=== PATIENT | male | born 1975 | race African-American/Black ===

== ENCOUNTER 2018-06-12 20:26 | Emergency (ER) | payer OTHER ==
[2018-06-12 21:06] LABS: #Basophils 0.2 thou/uL (0.0-0.2); #Eosinphils 0.2 thou/uL (0.0-0.7); #Monocytes 0.8 thou/uL (0.11-0.59); #Neutrophils 7.8 thou/uL (1.40-6.50); %Basophils 1.3 % (0.0-1.0); %Eosinophils 1.6 % (0.0-10.0); %Lymphocytes 25.1 % (21.0-51.0); Hemoglobin 15.2 g/dL (14.0-18.0); Mean Corpuscular HGB CONC 34.8 g/dL (32.0-36.0); Mean Corpuscular Hemoglobin 29.5 pg (27.0-31.0); Mean Corpuscular Volume 84.8 fL (78.0-98.0); Mean Platelet Volume 6.7 fL (7.4-10.4); Platelet Count 315 thou/uL (130-400); RBC Distribution Width 13.4 % (11.5-14.5); Red Blood Cell (RBC) Count 5.14 mill/uL (4.70-6.10)
--- NOTE | 2018-06-12 21:11 | RAD ---
RADIOGRAPH CHEST 1 VIEW: 06/12/18 HISTORY: 42-year-old male with acute chest pain. FINDINGS: There is no air space density, pulmonary edema, or pneumothorax. The lateral costophrenic angles are sharp. There is a single lead left subclavian AICD. IMPRESSION: 1. No acute pulmonary findings. 2. Automatic implantable cardioverter/defibrillator. jn [][id number] POS: [facility]
[2018-06-12 21:50] LABS: CKMB 4.5 ng/mL (0-6.6)
[2018-06-13 00:28] LABS: Troponin I 0.041 ng/mL (< 0.028)
[2018-06-13 01:29] LABS: ALT (SGPT) 27 U/L (8-55); AST (SGOT) 24 U/L (5-34); Albumin 4.5 g/dL (3.5-5.0); Alkaline Phosphatase 67 U/L (40-150); Anion Gap 15 mmol/L (10-20); BUN (Urea Nitrogen) 55 mg/dL (8.9-20.6); Bilirubin, Total 0.6 mg/dL (0.2-1.2); Calc. Creatinine Clearance 0 mL/min (70-130); Calcium 10.2 mg/dL (7.8-10.44); Carbon Dioxide 24 mmol/L (22-29); Chloride 101 mmol/L (98-107); Estimated GFR-MDRD 39; Glucose 99 mg/dL (70-105); Potassium 3.8 mmol/L (3.5-5.1); Protein, Total 7.5 g/dL (6.0-8.3); Sodium 136 mmol/L (136-145)
--- NOTE | 2018-06-16 10:49 | EKG ---
Test Reason : Blood Pressure : / mmHG Vent. Rate : 087 BPM Atrial Rate : 087 BPM P-R Int : 176 ms QRS Dur : 086 ms QT Int : 400 ms P-R-T Axes : 052 -26 150 degrees QTc Int : 481 ms Normal sinus rhythm Moderate voltage criteria for LVH, may be normal variant Inferior infarct , age undetermined T wave abnormality, consider lateral ischemia Abnormal ECG Confirmed by AMINA PEDRO DO ([id number]), avid editor LORRAINE DESIR ([id number]) on 06/16/2018 10:49:18 AM Referred By: Confirmed By:AMINA PEDRO DO
== END 2018-06-13 00:40 | disposition home or self-care (01) ==
LOC: ERS 20:26
DX: R07.9 Chest pain, unspecified (principal); I25.10 Atherosclerotic heart disease of native coronary artery without angina pectoris; I25.2 Old myocardial infarction; I11.0 Hypertensive heart disease with heart failure; I50.9 Heart failure, unspecified; Z87.891 Personal history of nicotine dependence; Z79.899 Other long term (current) drug therapy; Z79.82 Long term (current) use of aspirin
CPT/HCPCS: 36415; 71045; 80053; 82550; 82553; 84484; 85025; 93005

== ENCOUNTER 2018-11-25 20:05 | Observation (INO) | payer OTHER ==
--- NOTE | 2018-11-25 20:28 | RAD ---
EXAM: Chest one view: HISTORY: Chest pain COMPARISON: 06/12/2018 FINDINGS: Left ICD. Heart size: Enlarged. Lungs: Clear of acute process. No evidence for pneumonia, pleural effusion, acute edema, or pneumothorax, or other significant acute process. IMPRESSION: Cardiomegaly with left ICD. No new process.
[2018-11-25] MEDS ORDERED: Nitroglycerin 2% Ointment 1 INCH/1 GM Packet ONE (20:33)
[2018-11-25 20:58] LABS: #Basophils 0.1 thou/uL (0.0-0.2); #Eosinphils 0.3 thou/uL (0.0-0.7); #Lymphocytes 3.4 thou/uL (1.20-3.40); #Monocytes 0.5 thou/uL (0.11-0.59); #Neutrophils 4.5 thou/uL (1.40-6.50); %Basophils 1.3 % (0.0-1.0); %Eosinophils 3.6 % (0.0-10.0); %Lymphocytes 38.4 % (21.0-51.0); %Neutrophils 50.7 % (42.0-75.0); Hemoglobin 15.5 g/dL (14.0-18.0); Mean Corpuscular HGB CONC 35.2 g/dL (32.0-36.0); Mean Corpuscular Hemoglobin 29.4 pg (27.0-31.0); Mean Corpuscular Volume 83.6 fL (78.0-98.0); Mean Platelet Volume 7.6 fL (7.4-10.4); Platelet Count 218 thou/uL (130-400); RBC Distribution Width 13.1 % (11.5-14.5); Red Blood Cell (RBC) Count 5.29 mill/uL (4.70-6.10); White Blood Cell (WBC) Count 8.8 thou/uL (4.8-10.8)
[2018-11-25 21:21] LABS: ALT (SGPT) 29 U/L (8-55); AST (SGOT) 22 U/L (5-34); Albumin 4.2 g/dL (3.5-5.0); Alkaline Phosphatase 85 U/L (40-150); Anion Gap 15 mmol/L (10-20); BUN (Urea Nitrogen) 23 mg/dL (8.9-20.6); Bilirubin, Total 0.5 mg/dL (0.2-1.2); Calc. Creatinine Clearance 0 mL/min (70-130); Calcium 8.9 mg/dL (7.8-10.44); Carbon Dioxide 19 mmol/L (22-29); Chloride 106 mmol/L (98-107); Estimated GFR-MDRD 52; Globulin 2.9 g/dL (2.4-3.5); Glucose 88 mg/dL (70-105); Lipase 49 U/L (8-78); Potassium 4.1 mmol/L (3.5-5.1); Protein, Total 7.1 g/dL (6.0-8.3); Sodium 136 mmol/L (136-145)
[2018-11-25 21:22] LABS: Bilirubin Negative (Negative); Blood, Urine Negative (Negative); Clarity CLEAR (Clear); Glucose, Urine (Dipstick) Negative (Negative); Leukocyte Small (Negative); Nitrite Negative (Negative); Protein, Urine (Dipstick) Negative (Neg-Trace); Urobilinogen 0.2 mg/dL (0.2-1.0)
[2018-11-25 21:26] LABS: Bacteria/HPF None Seen HPF (None Seen); RBC/HPF 0-3 HPF (0-3); Squamous Epithelial 0-3 HPF (0-3)
[2018-11-25 21:29] LABS: Pathc Cast-AUWi Flag 3.26 (0-2.49)
[2018-11-25 21:38] LABS: Hyaline Casts/LPF 7-10 HYALINE CAST LPF (0-3 Hyaline)
[2018-11-26 00:09] VITALS: BMI 36.4
[2018-11-26 00:10] LABS: Troponin I 0.041 ng/mL (< 0.028)
[2018-11-26] MEDS ORDERED: Ondansetron PF 4 MG/2 ML Vial IVP PRN (01:59)
[2018-11-26] MEDS ORDERED: Acetaminophen 650 MG Suppository PR PRN (01:59)
[2018-11-26] MEDS ORDERED: Ondansetron ODT 4 MG TAB PO PRN (01:59)
[2018-11-26] MEDS ORDERED: Acetaminophen 325 MG TAB PO PRN (01:59)
[2018-11-26 02:37] LABS: Amphetamine Not Detected (NotDetected); Barbiturates Screen Not Detected (NotDetected); Benzodiazepine Screen Not Detected (NotDetected); Cocaine Metabolite Screen Not Detected (NotDetected); Medtox Control Line Valid? VALID (VALID); Medtox Reader # READER 4; Methadone Not Detected (NotDetected); Methamphetamine Not Detected (NotDetected); Opiate Screen Not Detected (NotDetected); Oxycodone Screen Not Detected (NotDetected); Phencyclidine (PCP) Not Detected (NotDetected); THC/Cannabinoid Screen Detected (NotDetected); Tricyclic Screen Not Detected (NotDetected)
[2018-11-26 03:00] LABS: Troponin I 0.036 ng/mL (< 0.028)
--- NOTE | 2018-11-26 03:16 | HP ---
HISTORY OF PRESENT ILLNESS: Mr. Adhikari is a 43-year-old man who presents with complaints of chest pain that started earlier this afternoon at approximately 1: 00 pm. The patient states this happened after he had been straining himself moving furniture around his home. It did not occur until he sat down stressed. He states the pain was approximately 8/10 in severity, which he describes as a soreness in the center of his chest. It was nonradiating. No associated shortness of breath. He took a nitroglycerin and it relieved his discomfort immediately. The pain however recurred within 1 hour and again, he took nitroglycerin. The pain then recurred within 30 minutes and he took a third dose of nitroglycerin. Within another 30 minutes, he had recurrent pain that was more severe and associated with breathlessness. The patient states in the 1-2 hours leading up to this severe pain, he had been arguing with his uncle. He states he felt lightheaded. He reports being given another dose of nitroglycerin in the ambulance that took his pain away completely and has not recurred since. He denies any recent cough or hemoptysis. No fevers, chills, or sweats. No headaches or dizziness. The patient is known to have an extensive cardiac history. He is known to have coronary artery disease and has undergone a cardiac stent placement in the past. He has a history of chronic CHF with noncompliance due to not having insurance. The patient is status post an AICD placement in 2014. The cardiac stent placement was in July of 2014. The last echocardiogram on file was in June 2016, which was a 2D echo showing severe LV dysfunction with an EF of 30% to 35% and moderate to severe global hypokinesis with grade 1 diastolic dysfunction. Trace to mild mitral regurgitation and mild tricuspid regurgitation present. The patient states since then he has sought medical attention at the [facility]. He was last seen approximately 1 month ago for chest pain. He was admitted and underwent investigations including an echocardiogram and possibly stress test. He states he has had recurrent pain since then, prompting a visit to the ER, but due to being given a moldy sandwich, walked out and has decided never to go back there again. He does not follow with a artist representative nor a primary care doctor. PAST MEDICAL HISTORY: 1. Coronary artery disease. 2. CHF. 3. IL, treated with stent. 4. Hypertension. PAST SURGICAL HISTORY: 1. Internal defibrillator. 2. Cardiac stent. PAST SOCIAL HISTORY: The patient reports drinking on social occasions only. Denies any recent alcohol use. Denies any tobacco use and states he smokes marijuana occasionally. Denies any other drug use. Denies any cocaine use. ALLERGIES: NO KNOWN DRUG ALLERGIES. CURRENT MEDICATIONS: 1. Amlodipine. 2. Atorvastatin. 3. Carvedilol. 4. Hydralazine. 5. Aspirin. 6. Furosemide. 7. Lisinopril. 8. Spironolactone. PHYSICAL EXAMINATION: GENERAL: The patient appears well developed, well nourished, and is in no acute distress. VITAL SIGNS: Temperature 97.7, pulse 69, respirations 16, O2 saturation 98% on room air, blood pressure 144/88. HEENT: Normocephalic and atraumatic. Pupils are equal, round, and reactive to light. Sclerae are without icterus. Oropharynx is clear. NECK: Supple without lymphadenopathy. CARDIAC: Regular rate and rhythm. CHEST: Chest wall with mild discomfort to palpation at the incision from previous defibrillator placement on the left chest without any erythema or warmth. Well-healed incision. Lungs clear to auscultation bilaterally. ABDOMEN: Soft, obese, nontender, nondistended. Normoactive bowel sounds present. No guarding or rigidity. No renal angle tenderness. EXTREMITIES: No lower leg swelling or edema. NEUROLOGIC: Alert and oriented x3. SKIN: Without rash or jaundice. LABORATORY DATA: White blood count 9.8, hemoglobin 15.5, hematocrit 44.2, platelets 218. Sodium 136, potassium 4.1, BUN 23, creatinine 1.74, GFR 52, calcium 8.9, total bilirubin 0.5, AST 22, ALT 29, alkaline phosphatase 85. Troponin I 0.023, 0.041. Albumin 4.2. Lipase 49. Urinalysis notable for small leukocyte esterase, 7 to 10 white blood cells and hyaline casts 7-10. IMAGING DATA: Chest x-ray, cardiomegaly with left ICD. No new process. IMPRESSION AND PLAN: Mr. Adhikari is a 43-year-old man who is being referred for management of the followin. Chest pain, acute coronary syndrome rule out. Likely induced by emotional stress due to an argument with his uncle. Since receiving a 4th dose of nitroglycerin with EMS, he has had no further chest pain. He feels back to baseline and is without any complaints. Initial troponin normal. Second troponin slightly elevated at 0.041. We will continue to trend troponins. BNP added-on. He states he underwent investigations at the [facility] in the last couple of months. We will obtain records in order to decide what investigations need to be done while he is here. Chest x- ray unremarkable. EKG done in the emergency department showed no ST changes, however T-wave inversion through lateral leads. We will add a urine drug screen. Also will add magnesium level. The patient will continue with daily aspirin and atorvastatin. Day team to decide if Cardiology input indicated. 2. Hypertension. Resume home medications and monitor blood pressure. 3. Hyperlipidemia. We will resume atorvastatin as mentioned above. 4. Gastrointestinal prophylaxis. 5. Deep venous thrombosis prophylaxis with mechanical SCDs. 6. Code status full. His surrogate decision maker is his sister, Jany Lee. The patient's case was discussed with Dr. Wyatt, who agrees with plan of care as described above. Job ID: [id number] [facility]ITALMario Alberto
[2018-11-26 05:05] LABS: #Basophils 0.1 thou/uL (0.0-0.2); #Eosinphils 0.4 thou/uL (0.0-0.7); #Lymphocytes 3.5 thou/uL (1.20-3.40); #Monocytes 0.6 thou/uL (0.11-0.59); #Neutrophils 3.7 thou/uL (1.40-6.50); %Basophils 1.4 % (0.0-1.0); %Eosinophils 4.6 % (0.0-10.0); %Lymphocytes 42.1 % (21.0-51.0); %Monocytes 7.4 % (0.0-10.0); %Neutrophils 44.5 % (42.0-75.0); Hemoglobin 15.2 g/dL (14.0-18.0); Mean Corpuscular HGB CONC 34.9 g/dL (32.0-36.0); Mean Corpuscular Hemoglobin 29.2 pg (27.0-31.0); Mean Corpuscular Volume 83.7 fL (78.0-98.0); Mean Platelet Volume 7.4 fL (7.4-10.4); Platelet Count 208 thou/uL (130-400); RBC Distribution Width 12.9 % (11.5-14.5); Red Blood Cell (RBC) Count 5.21 mill/uL (4.70-6.10); White Blood Cell (WBC) Count 8.2 thou/uL (4.8-10.8)
[2018-11-26 05:27] LABS: Anion Gap 12 mmol/L (10-20); BUN (Urea Nitrogen) 22 mg/dL (8.9-20.6); Calc. Creatinine Clearance 110 mL/min (70-130); Calcium 9.4 mg/dL (7.8-10.44); Carbon Dioxide 23 mmol/L (22-29); Estimated GFR-MDRD 65; Glucose 97 mg/dL (70-105); Potassium 3.9 mmol/L (3.5-5.1)
[2018-11-26 05:32] LABS: Chloride 106 mmol/L (98-107); Sodium 137 mmol/L (136-145)
[2018-11-26] MEDS ORDERED: Famotidine/PF 20 mg/2ml Vial SLOW IVP SCH (09:00)
[2018-11-26] MEDS: Amlodipine 10 MG TAB PO SCH (10:26)
[2018-11-26] MEDS: Aspirin 81 mg Enteric Coated Tablet PO SCH (10:26)
[2018-11-26] MEDS: Spironolactone 25 MG TAB PO SCH (10:26)
[2018-11-26] MEDS: Lisinopril 5 MG TAB PO SCH (10:26)
[2018-11-26] MEDS: Atorvastatin Calcium 40 MG TAB PO SCH (10:27)
[2018-11-26] MEDS: hydrALAZINE 10 MG TAB PO SCH ×3 (10:27→21:31)
[2018-11-26] MEDS: Furosemide 40 MG TAB PO SCH ×2 (10:27→15:42)
[2018-11-26] MEDS: Carvedilol 25 MG TAB PO SCH ×2 (15:42→21:32)
--- NOTE | 2018-11-26 16:35 | PRG ---
DATE OF SERVICE: 11/26/2018 SUBJECTIVE: Mr. Adhikari is a 43-year-old male with past medical history significant for dilated cardiomyopathy with last EF estimated at 15% to 20%, status post ICD, and mild CAD diagnosed in 2013, who presented to the hospital with complaints of exertional chest pain that was relieved with nitro. The patient has remained chest pain free since his admission. He denies any chest pain or shortness of breath to me today. He denies any nausea or vomiting. No other complaints at this time. OBJECTIVE: VITAL SIGNS: Blood pressure 132/88, pulse 69, O2 saturation is 100% on room air, and temperature 98.3. GENERAL: The patient is a mildly obese, well-appearing male, in no acute distress. HEENT: Head is atraumatic and normocephalic. Mucous membranes are moist. NECK: Supple. No obvious JVD. Trachea is midline. CARDIOVASCULAR: S1 and S2. Regular rate and rhythm. No appreciable murmurs, rubs, or gallops. LUNGS: Regular respiratory rate and pattern, overall clear to auscultation bilaterally. ABDOMEN: Positive bowel sounds. Soft, nontender. EXTREMITIES: No edema. SKIN: Warm and dry. NEUROLOGIC: Cranial nerves II through XII are grossly intact. The patient is nonfocal. LABORATORY DATA: White blood cell count 8.2, hemoglobin 15.2, hematocrit 43.6, and platelet count is 208. Sodium 137, potassium 3.9, chloride 106, anion gap 12, BUN of 22, and creatinine is 1.44. Troponin 0.041, 0.036 respectively. ASSESSMENT: 1. Chest pain, resolved, troponin indeterminate. 2. History of dilated cardiomyopathy, last ejection fraction 15% to 20%, history of single-chamber implantable cardioverter defibrillator implant in 2013. 3. Hypertension. 4. No significant coronary artery disease, left heart catheterization in 2014 revealed possible distal left anterior descending disease. 5. Chronic renal insufficiency, likely secondary to cardiorenal syndrome. 6. Cannabinoid abuse. PLAN: The patient has been seen in consultation with Dr. Gonzalez, who recommends continued observation and consultation with the patient's primary artificial marble worker, Dr. Meehan tomorrow. We will continue beta-kush and afterload reduction with JUAN inhibitor. We will continue to monitor his renal function closely. Continue aspirin, statin, and beta-kush as mentioned. Nuclear stress test was deferred today in the setting of low EF, and will defer that to Dr. Meehan to decide in the morning. Further recommendations based on hospital course. Job ID: [id number]
--- NOTE | 2018-11-26 17:42 | CON ---
DATE OF CONSULTATION: HISTORY OF PRESENT ILLNESS: Ryne Adhikari is a 43-year-old black male, who has been evaluated by Dr. Meehan in the past. In June 2012, he was admitted with cardiomyopathy and underwent cardiac catheterization, which revealed normal coronary arteries. The patient thinks that he had a stent placed at that time; however, in reading the report, no mention is made of any disease in his coronary arteries. He underwent placement of a single-chamber ICD by Dr. Jones in July 2014. Most recently, he has been hospitalized at [facility]. Echocardiogram there revealed moderate concentric left ventricular hypertrophy with ejection fraction of 15% to 20% with trace mitral and tricuspid insufficiency. He now is admitted with multiple episodes of chest discomfort. He admits that he did not take his medication on November 24. On November 25, he was in a stressful situation arguing with some people, had multiple episodes of chest pressure. He denies any significant shortness of breath or peripheral edema. PAST MEDICAL HISTORY: Hypertension, nonischemic cardiomyopathy, and peripheral vascular disease with stent placement in the right leg. OPERATIONS: ICD placement. MEDICATIONS: 1. Carvedilol 25 mg b.i.d. 2. Amlodipine 10 mg daily. 3. Aspirin 81 daily. 4. Atorvastatin 40 at bedtime. 5. Furosemide 40 mg b.i.d. 6. Hydralazine 10 mg t.i.d. 7. Lisinopril 5 mg daily. 8. Spironolactone 25 q.a.m. ALLERGIES: NONE. SOCIAL HISTORY: He smokes marijuana and cigars. He does not drink. REVIEW OF SYSTEMS: Unremarkable. PHYSICAL EXAMINATION: VITAL SIGNS: Blood pressure 132/88, pulse 69. HEENT: PERRL. NECK: Supple. CHEST: Clear. CARDIAC: S1 and S2 are normal without any S3, S4, or murmurs. ABDOMEN: Normal bowel sounds without tenderness or organomegaly EXTREMITIES: Reveal no clubbing, cyanosis, or edema. NEUROLOGIC: Grossly intact. LABORATORY DATA: EKG revealed normal sinus rhythm with diffuse T-wave inversion. CBC is unremarkable. Sodium 136, potassium 4.1, chloride 106, carbon dioxide 19 , BUN 23, creatinine 1.74. Troponin I is 0.041. IMPRESSION: 1. Nonischemic cardiomyopathy with normal coronary arteries on catheterization in 2012. 2. Status post single-chamber implantable cardioverter-defibrillator. 3. Episode of chest discomfort with noncompliance with his medication the day before. 4. Hypercholesterolemia. PLAN: The patient's ICD will be interrogated. He will continue to be monitored and placed back on his usual medications. With history of normal coronary arteries in the past and no significant change in his cardiac enzymes, he probably will not need any further evaluation. Job ID: [id number] MTDD
[2018-11-26] MEDS: Famotidine 20 MG TAB PO SCH (21:31)
[2018-11-27 05:39] LABS: Anion Gap 14 mmol/L (10-20); BUN (Urea Nitrogen) 19 mg/dL (8.9-20.6); Calc. Creatinine Clearance 129 mL/min (70-130); Carbon Dioxide 23 mmol/L (22-29); Chloride 106 mmol/L (98-107); Estimated GFR-MDRD 77; Potassium 3.9 mmol/L (3.5-5.1); Sodium 139 mmol/L (136-145)
[2018-11-27 05:40] LABS: Calcium 9.3 mg/dL (7.8-10.44); Glucose 113 mg/dL (70-105)
--- NOTE | 2018-11-27 08:23 | PDOC.CTH ---
Cardiology Progress Note - Subjective Feels better. No recurrent CP present. States increased stressors at home - Objective Vital Signs Temp Pulse Resp BP Pulse Ox 11/27/18 07:35 98.1 F 68 16 127/81 99 11/27/18 03:42 97.6 F 79 18 121/61 98 11/26/18 23:29 98.2 F 65 16 135/82 99 11/26/18 21:31 73 Weight 262 lb 4 oz 11/26/18 11/27/18 11/28/18 06:59 06:59 06:59 Intake Total 240 1170 Output Total 400 2080 Balance -160 -910 - Physical Examination General/Neuro: alert & oriented x3, NAD Neck: carotid US brisk, no JVD present Lungs: unlabored respirations Heart: RRR Abdomen: NT/ND, soft Extremities: + femoral B - Labs Result Diagrams: 11/26/18 04:55 11/27/18 04:42 Troponin/CKMB Troponin I 0.036 ng/mL (< 0.028) H 11/26/18 02:15 - Assessment/Plan CP NICM Non-complinace PAD s/p ICD RI Given h/o non-compliance, any treatment moving forward will be difficult. Ok to proceed with NIST If no ishcemia or small area of ischemia, recommend medical therapy. If moderate to large size area, recommend angio BB, ASA, statin, ACEI No further recommendations Plan is to fu in office of no ischemia or small area of ishcemia present.
[2018-11-27] MEDS: Spironolactone 25 MG TAB PO SCH (08:40)
[2018-11-27] MEDS: Carvedilol 25 MG TAB PO SCH ×2 (08:40→16:44)
[2018-11-27] MEDS: Furosemide 40 MG TAB PO SCH ×2 (08:41→16:44)
[2018-11-27] MEDS: Atorvastatin Calcium 40 MG TAB PO SCH (08:41)
[2018-11-27] MEDS: Famotidine 20 MG TAB PO SCH ×2 (08:41→20:38)
[2018-11-27] MEDS: Lisinopril 5 MG TAB PO SCH (08:41)
[2018-11-27] MEDS: Aspirin 81 mg Enteric Coated Tablet PO SCH (08:41)
[2018-11-27] MEDS: Amlodipine 10 MG TAB PO SCH (08:41)
[2018-11-27] MEDS: hydrALAZINE 10 MG TAB PO SCH ×3 (08:41→20:38)
[2018-11-27] MEDS ORDERED: Mag-Al 1200 mg/1200 mg/30 ML UDCUP PO SCH (12:00)
--- NOTE | 2018-11-27 17:33 | PRG ---
DATE OF SERVICE: 11/27/2018 SUBJECTIVE: The patient is a 43-year-old male with past medical history significant for dilated cardiomyopathy with last EF estimated at 25% to 30%, status post single-chamber ICD, and mild CAD diagnosed by Dr. Meehan in 2013, who presented to the hospital with complaints of exertional chest pain, not relieved with nitro. The patient has had no further chest pain since his admission. He did have a very mild elevation in his troponin. He has been seen in conjunction with Cardiology, who did clear a Cardiolite stress test for the patient today. The patient denies nausea or vomiting to me. He denies any chest pain or shortness of breath. He is ambulating the halls without issue at this time. OBJECTIVE: VITAL SIGNS: Blood pressure 124/68, pulse 66, O2 saturation is 99% on room air, the patient is afebrile at 97.5 degrees Fahrenheit. GENERAL: The patient is a mildly obese male, sitting up in bed, in no acute distress. HEENT: Head is atraumatic and normocephalic. Mucous membranes are moist. NECK: Supple. No obvious JVD. Trachea is midline. CV: S1 and S2. Regular rate and rhythm. No appreciable murmurs, rubs, or gallops. LUNGS: Regular respiratory rate and pattern, overall clear to auscultation bilaterally. ABDOMEN: Positive bowel sounds. Soft and nontender. EXTREMITIES: No edema. SKIN: Warm and dry. NEUROLOGIC: Cranial nerves 2 through 12 grossly intact. The patient is nonfocal. LABORATORY DATA: Sodium 139, potassium 3.9, creatinine 1.23, estimated GFR 77. ASSESSMENT: 1. Chest pain consistent with angina, indeterminate troponin. 2. History of dilated cardiomyopathy, EF 25% to 30%, with history of single-chamber implantable cardioverter defibrillator in 2013. 3. Hypertension. 4. History of distal LAD disease per left heart catheterization in [address] Meehan. 5. Chronic renal insufficiency, likely secondary to cardiorenal syndrome, creatinine has been improving since admission. 6. Cannabinoid abuse. PLAN: The patient will have the rest images of his Cardiolite performed tomorrow. Anticipate discharge if stress test shows no evidence of reversible ischemia. We will continue his beta kush, aspirin, and statin at this time. We will continue lisinopril. The patient appears euvolemic at this time. We will continue his oral Lasix. Further recommendations based on findings of noninvasive testing tomorrow. Job ID: [id number]
[2018-11-28 07:58] VITALS: BP 128/77; TEMP 98.1
--- NOTE | 2018-11-28 09:31 | NM ---
NM Cardiac Stress W EF WF History: Chest pain Comparison: None. Findings: Stress and rest performed after the intravenous administration of 28.2 and 32.5 mCi technet ium 99m sestamibi. Large scar of the inferior, apical and septal wall with small lucretia-infarct ischemia along the apex. G lobal hypokinesia with dyskinesia of the septum. Ejection fraction calculated at 23%. Impression: Large scar of the inferior, apical and septal wall with small lucretia-infarct ischemia of th e apex. Global hypokinesia with septal dyskinesia.
[2018-11-28] MEDS: Spironolactone 25 MG TAB PO SCH (10:52)
[2018-11-28] MEDS: hydrALAZINE 10 MG TAB PO SCH (10:52)
[2018-11-28] MEDS: Amlodipine 10 MG TAB PO SCH (10:52)
[2018-11-28] MEDS: Atorvastatin Calcium 40 MG TAB PO SCH (10:52)
[2018-11-28] MEDS: Famotidine 20 MG TAB PO SCH (10:53)
[2018-11-28] MEDS: Carvedilol 25 MG TAB PO SCH (10:53)
[2018-11-28] MEDS: Aspirin 81 mg Enteric Coated Tablet PO SCH (10:53)
[2018-11-28] MEDS: Furosemide 40 MG TAB PO SCH (10:53)
[2018-11-28] MEDS: Lisinopril 5 MG TAB PO SCH (10:53)
--- NOTE | 2018-11-28 12:20 | DIS ---
DATE OF ADMISSION: 11/25/2018 DATE OF DISCHARGE: 11/28/2018 CHIEF COMPLAINT ON ADMISSION: Chest pain. DISCHARGE DIAGNOSES: 1. Chest pain, resolved, MPI negative for reversible ischemia. 2. Dilated cardiomyopathy, ejection fraction 25% to 30%, status post automatic implantable cardioverter-defibrillator, single-chamber 2013. 3. Coronary artery disease, distal left anterior descending artery disease per left heart catheterization in 2013, otherwise normal coronaries. 4. Chronic renal insufficiency, likely secondary to cardiorenal syndrome, creatinine has steadily improved since his admission. 5. Cannabinoid abuse. BRIEF HOSPITAL COURSE: The patient is a 43-year-old male with past medical history significant for dilated cardiomyopathy, hypertension, and history of ICD, who presented to the hospital with complaints of chest pain. The patient had been moving furniture around and had some emotional stress after an argument with a relative. He had no associated shortness of breath, and the pain was nonradiating. It was relieved with nitroglycerin. He began working again, and had several more episodes of chest pain that were more severe and also relieved with nitroglycerin and so he presented to the emergency department for further evaluation. He was seen in consultation with Dr. Meehan, and stress test was ordered. MPI revealed a large scar of the inferior apical and septal wall with small lucretia-infarct ischemia of the apex, global hypokinesia with septal dyskinesia, calculated EF of 23%. His troponin was indeterminate and peaked at 0.04. Per Dr. Meehan, he is okay to discharge. He has had no further chest pain since his admission. He has ambulated the halls without issue. CONSULTANTS: Dr. Meehan of Cardiology. DISCHARGE CONDITION: Stable. DISCHARGE DISPOSITION: Home. DISCHARGE MEDICATIONS: 1. Amlodipine 10 mg one tablet daily. 2. Aspirin 81 mg daily. 3. Atorvastatin 40 mg p.o. at bedtime. 4. Carvedilol 25 mg p.o. b.i.d. 5. Lasix 40 mg p.o. b.i.d. 6. Hydralazine 10 mg p.o. t.i.d. 7. Lisinopril 5 mg daily. 8. Nitroglycerin 0.4 mg sublingual p.r.n. chest pain. 9. Aldactone 25 mg daily. DISCHARGE INSTRUCTIONS AND FOLLOWUP: The patient will follow up at [facility] and also will follow up as an outpatient with Dr. Meehan. He has been counseled extensively on the importance of daily weights and low-sodium diet regarding management of his heart failure. He will continue beta kush and afterload reduction with lisinopril as outlined above. The patient will continue to take sublingual nitroglycerin as needed, there is no indication for left heart catheterization at this time. The patient will be discharged to home in good condition today. Job ID: [id number]
--- NOTE | 2018-12-01 22:51 | EKG ---
Test Reason : CHEST PAIN Blood Pressure : / mmHG Vent. Rate : 067 BPM Atrial Rate : 067 BPM P-R Int : 188 ms QRS Dur : 088 ms QT Int : 460 ms P-R-T Axes : 085 -15 163 degrees QTc Int : 486 ms Normal sinus rhythm Minimal voltage criteria for LVH, may be normal variant T wave abnormality, consider lateral ischemia Abnormal ECG Confirmed by ROSANGELA DUENAS ([id number]), associate entertainment editor NADIR CORTEZ ([id number]) on 12/01/2018 10:50:36 PM Referred By: Confirmed By:ROSANGELA DUENAS
== END 2018-11-28 11:46 | disposition home or self-care (01) ==
LOC: ERS 20:05 → 2SW 23:50
PROVIDERS: ADMIT Internal Medicine; ATTEND Internal Medicine
DX: R07.89 Other chest pain (principal); I42.0 Dilated cardiomyopathy; I25.10 Atherosclerotic heart disease of native coronary artery without angina pectoris; I13.0 Hypertensive heart and chronic kidney disease with heart failure and stage 1 through stage 4 chronic kidney disease, or unspecified chronic kidney disease; N18.9 Chronic kidney disease, unspecified; I50.9 Heart failure, unspecified; F12.10 Cannabis abuse, uncomplicated; I08.1 Rheumatic disorders of both mitral and tricuspid valves; I25.2 Old myocardial infarction; E78.5 Hyperlipidemia, unspecified; I73.9 Peripheral vascular disease, unspecified; F17.290 Nicotine dependence, other tobacco product, uncomplicated; E78.00 Pure hypercholesterolemia, unspecified; Z91.14 Patient's other noncompliance with medication regimen; Z79.82 Long term (current) use of aspirin; Z79.899 Other long term (current) drug therapy; Z95.5 Presence of coronary angioplasty implant and graft; Z95.810 Presence of automatic (implantable) cardiac defibrillator; Z95.820 Peripheral vascular angioplasty status with implants and grafts
CPT/HCPCS: 36415; 71045; 78452; 80048; 80053; 80306; 81003; 81015; 83690; 83880; 84484; 85025; 93005; 93017; 96374; A9500; G0378; J0153; S0028

== ENCOUNTER 2019-11-12 08:42 | Inpatient (IN) | payer OTHER ==
[2019-11-12] MEDS ORDERED: Heparin 10,000 UNITS/ 10 ML VIAL ONE (08:44)
[2019-11-12] MEDS ORDERED: Iopamidol 370 76% 100 ML VIAL ONE (08:48)
[2019-11-12] MEDS ORDERED: Iopamidol 370 76% 50 ML VIAL FS ONE (08:48)
[2019-11-12] MEDS ORDERED: Nitroglycerin 50 MG/250 ML BOT 250 ML ONE (08:54)
[2019-11-12 08:58] LABS: Actual Bicarbonate (HCO3a) 25.2 mEq/L (22-28); Analyzer IN Cardio ER; Base Excess (BEa) -5.9 mEq/L (-2.0 to +3.0); Calcium, Ionized (arterial) 1.16 mmol/L (1.12-1.30); Hemoglobin (Hb) 16.1 g/dL (14.0-18.0); Potassium - ABG Lab 4.05 mmol/L (3.70-5.30)
[2019-11-12] MEDS ORDERED: fentaNYL Citrate/PF 2,000 MCG in Sodium Chloride 0.9% 60 ML IV SCH ×2 (08:58→13:40)
[2019-11-12 09:01] LABS: CO2 Tension 75.3 mmHg (35.0-45.0); O2 Tension (PaO2), arterial 58.4 mmHg (80.0-100.0); pH, Arterial 7.14 (7.35-7.45)
[2019-11-12 09:02] LABS: ALV-art Gradient 560.475 (0-20); Puncture Site RRA
[2019-11-12 09:03] LABS: #Basophils 0.1 thou/uL (0.0-0.2); #Eosinphils 0.1 thou/uL (0.0-0.7); #Lymphocytes 1.5 thou/uL (1.20-3.40); #Monocytes 0.3 thou/uL (0.11-0.59); #Neutrophils 11.8 thou/uL (1.40-6.50); %Basophils 0.4 % (0.0-1.0); %Lymphocytes 10.7 % (21.0-51.0); %Monocytes 2.2 % (0.0-10.0); %Neutrophils 85.7 % (42.0-75.0); Mean Corpuscular HGB CONC 33.3 g/dL (32.0-36.0); Mean Corpuscular Hemoglobin 27.8 pg (27.0-31.0); Mean Corpuscular Volume 83.5 fL (78.0-98.0); Mean Platelet Volume 8.4 fL (7.4-10.4); Platelet Count 249 thou/uL (130-400); RBC Distribution Width 14.8 % (11.5-14.5); Red Blood Cell (RBC) Count 5.41 mill/uL (4.70-6.10); White Blood Cell (WBC) Count 13.8 thou/uL (4.8-10.8)
--- NOTE | 2019-11-12 09:09 | RAD ---
CHEST 1 VIEW: HISTORY: Dyspnea. COMPARISON: Radiograph of 06/25/2019. FINDINGS: The patient is intubated with endotracheal tube tip not well seen, although felt to be at the level o f the clavicles. Possible enteric tube in place, although the tip is not well seen. Abnormal opacities throughout the lungs. Heart size is enlarged. Trace effusions. No pneumothorax. There appears to be a large bore catheter projecting over the right neck. IMPRESSION: 1. Cardiomegaly with extensive perihilar opacity may reflect edema or multifocal pneumonia. 2. No pneumothorax. 3. Poorly seen endotracheal tube tip likely below the level of the clavicles. 4. Enteric tube tip not well seen. 5. Large bore catheter projecting over the right neck. POS: [facility]
[2019-11-12 09:10] LABS: INR-International Normal Ratio 1.2; PTT 28.9 sec (22.9-36.1); Prothrombin Time 14.7 sec (12.0-14.7)
[2019-11-12] MEDS ORDERED: Aspirin 300 MG Suppository ONE (09:14)
[2019-11-12] MEDS ORDERED: Heparin 25,000 units/D5W 500 ML ONE (09:14)
[2019-11-12] MEDS ORDERED: Heparin 1,000 UNITS/ML VIAL ONE ×2 (09:24→09:27)
[2019-11-12 09:25] LABS: ALT (SGPT) 30 U/L (8-55); AST (SGOT) 34 U/L (5-34); Albumin 4.1 g/dL (3.5-5.0); Alkaline Phosphatase 98 U/L (40-110); Anion Gap 12 mmol/L (10-20); BUN (Urea Nitrogen) 17 mg/dL (8.9-20.6); Bilirubin, Total 0.3 mg/dL (0.2-1.2); CK (CPK) 491 U/L (30-200); Calc. Creatinine Clearance 0 mL/min (70-130); Calcium 8.2 mg/dL (7.8-10.44); Carbon Dioxide 24 mmol/L (22-29); Chloride 108 mmol/L (98-107); Estimated GFR-MDRD 57; Globulin 3.1 g/dL (2.4-3.5); Glucose 250 mg/dL (70-105); Potassium 4.1 mmol/L (3.5-5.1); Protein, Total 7.2 g/dL (6.0-8.3); Sodium 140 mmol/L (136-145)
[2019-11-12] MEDS ORDERED: DOPamine 400 MG/D5W 250 ML 0 ML ONE (09:30)
[2019-11-12] MEDS ORDERED: DOPamine 400 MG/D5W 250 ML 250 ML ONE (09:33)
[2019-11-12 09:48] LABS: CKMB 3.9 ng/mL (0-6.6)
[2019-11-12] MEDS ORDERED: Midazolam HCl 2 mg/2 ml Vial ONE ×2 (10:02→10:29)
--- NOTE | 2019-11-12 10:05 | RAD ---
XR Chest 1 View Portable HISTORY: Respiratory failure COMPARISON: Earlier exam of 8:13 AM. FINDINGS: Tip of the endotracheal tube is below the clavicular heads. Nasogastric tube is present the distal tip of which is not satisfactorily visualized. The heart is enlarged. Left-sided pacemaker device is again seen. Diffuse bilateral lung opacities are again noted. No pneumothoraces or large ef fusions are identified.
[2019-11-12 10:21] LABS: Bacteria/HPF None Seen HPF (None Seen); Bilirubin Negative (Negative); Blood, Urine 1+ (Negative); Clarity Clear (Clear); Glucose, Urine (Dipstick) Normal (Negative); Leukocyte Negative Leu/uL (Negative); Nitrite Negative (Negative); Protein, Urine (Dipstick) 70 mg/dL (Neg-Trace); Squamous Epithelial None Seen HPF (0-3); Urobilinogen Normal mg/dL (Less than 2)
[2019-11-12 10:23] LABS: Sperm/HPF Rare HPF (None Seen)
[2019-11-12] MEDS ORDERED: Ketamine 50 MG/ML (10ML VIAL) ONE (10:29)
[2019-11-12] MEDS ORDERED: Fentanyl 100 MCG/2 ML VIAL ONE (10:29)
[2019-11-12 10:30] LABS: Amphetamine Not Detected (NotDetected); Barbiturates Screen Not Detected (NotDetected); Benzodiazepine Screen Not Detected (NotDetected); Cocaine Metabolite Screen Not Detected (NotDetected); Medtox Control Line Valid? VALID (VALID); Medtox Reader # READER 1; Methadone Not Detected (NotDetected); Methamphetamine Not Detected (NotDetected); Opiate Screen Not Detected (NotDetected); Oxycodone Screen Not Detected (NotDetected); Phencyclidine (PCP) Not Detected (NotDetected); THC/Cannabinoid Screen Not Detected (NotDetected); Tricyclic Screen Not Detected (NotDetected)
[2019-11-12] MEDS ORDERED: Aggrastat 12.5 MG/250 ML 250 ML ONE (11:23)
[2019-11-12] MEDS ORDERED: Nitroglycerin 0.4 MG TAB (25 Tab Bottle) SL PRN (11:34)
[2019-11-12] MEDS ORDERED: Milk Of Magnesia 30 ML UDCUP PO PRN (11:34)
[2019-11-12] MEDS ORDERED: Zolpidem Tartrate 5 MG TAB PO PRN (11:34)
[2019-11-12] MEDS ORDERED: TICAGRELOR 90 MG TABLET PO SCH ×3 (11:45→21:00)
[2019-11-12] MEDS ORDERED: Aspirin Chewable 81 MG TAB PO SCH (11:45)
[2019-11-12] MEDS ORDERED: Aggrastat 12.5 MG/250 ML 250 ML IVPB SCH (11:45)
[2019-11-12] MEDS ORDERED: Morphine 2 MG/ML SYRINGE SLOW IVP PRN (13:40)
[2019-11-12] MEDS ORDERED: Fentanyl BOLUS 250 ML IVPB PRN (13:40)
[2019-11-12] MEDS ORDERED: Propofol BOLUS 1,000 MG/100 ML VIAL IV PRN (13:40)
[2019-11-12] MEDS ORDERED: DISCONTINUE PREVIOUS NARCOTIC PAIN MEDICATIONS AND BENZODIAZEPINES FS SCH (13:40)
--- NOTE | 2019-11-12 13:42 | RAD ---
EXAM: Single view of the chest HISTORY: Status post interventional cardiology COMPARISON: 11/12/2019 FINDINGS: Single view of the chest shows a normal sized cardiomediastinal silhouette. A left subclav ronni pacemaker seen with its tip in the right ventricle. No pneumothorax is seen. An endotracheal tube is seen with its tip between the clavicles. An NG tube is seen with its tip in the stomach. Ther e may be subtle airspace opacity projecting over the right lower lobe. The bones are unremarkable. IMPRESSION: Stable exam
[2019-11-12] MEDS: cefTRIAXone\\ROCEPHIN 1 GM in Sodium Chloride 0.9% 100 ML IVPB SCH (14:29)
[2019-11-12] MEDS ORDERED: Rocuronium Bromide 10 MG/ML (10ML VIAL) ONE (15:29)
[2019-11-12] MEDS ORDERED: PHENYLEPHRINE-NS 100 MCG/ML 10 ML SYRINGE ONE (15:29)
[2019-11-12 15:33] LABS: Actual Bicarbonate (HCO3a) 21.2 mEq/L (22-28); Base Excess (BEa) -2.1 mEq/L (-2.0 to +3.0); CO2 Tension 32.7 mmHg (35.0-45.0); Carboxyhemoglobin (COHb) 0.9 gm% (0.0-3.0); Hemoglobin (Hb) 15.3 g/dL (14.0-18.0); O2 Tension (PaO2), arterial 85.8 mmHg (80.0-100.0); Potassium - ABG Lab 4.29 mmol/L (3.70-5.30); pH, Arterial 7.43 (7.35-7.45)
[2019-11-12 15:34] LABS: Puncture Site LINE
[2019-11-12 15:35] LABS: ALV-art Gradient 443.725 (0-20)
[2019-11-12] MEDS: hydrALAZINE 10 MG TAB PO SCH ×2 (17:26→21:33)
--- NOTE | 2019-11-12 17:31 | HP ---
INDICATIONS FOR ADMISSION: A 44-year-old patient with acute respiratory cardiac arrest earlier today. HISTORY OF PRESENT ILLNESS: This is a 44-year-old gentleman who has a long history of cardiomyopathy, underwent cardiac catheterization in 2013. He was found to have normal coronary arteries. He has been seen in the hospital on multiple occasions with chest pain. Apparently this morning, he called 911 due to the shortness of breath. They arrived, and then shortly thereafter, the patient had respiratory arrest and then cardiac arrest. He was given, I believe, nitroglycerin en route. He also was given 100 mg of IV Lasix. He was given 300 mg of rectal aspirin. In the emergency room, he was given another 5000 units of heparin and was started on a heparin drip. EKG indicated an acute inferior STEMI. He was then taken emergently to the cardiac biological lab technician. He was apparently not complaining of any chest pain for what we can ascertain. When I arrived to the emergency room, the patient was already intubated, he had mainly complained of shortness of breath. He did undergo 4 minutes of CPR by EMS. I believe he also was given epinephrine. At this time since the patient arrived to the emergency room, he has had no further episodes of cardiac arrest or ventricular tachycardia or fibrillation. He has had some problems with hypertensive and hypotensive. Once he was stabilized with dopamine, he was taken emergently to the cardiac biological lab technician where he underwent the procedure today and that result will follow. He did have an acute inferior myocardial infarction, but due to a large left circumflex which was a dominant vessel. PAST MEDICAL HISTORY: Significant for: 1. Hypertension. 2. Nonischemic cardiomyopathy. 3. Peripheral vascular disease. 4. He has had a stent placement to the right leg. 5. He has an AICD implant. MEDICATIONS: Prior to admission for what I can ascertain the last history and physical. He was takin. Coreg 25 mg b.i.d. 2. Amlodipine 10 mg a day. 3. Aspirin 81 mg a day. 4. Atorvastatin 40 mg q.p.m. 5. Furosemide 40 mg b.i.d. 6. Hydralazine 10 mg t.i.d. 7. Lisinopril 5 mg a day. 8. Spironolactone 25 mg q.a.m. According to the family, he was taking his medications. ALLERGIES: NONE. SOCIAL HISTORY: According to last social history, he was smoking cigars and marijuana. No history of alcohol use. REVIEW OF SYSTEMS: Not obtainable at this time. PHYSICAL EXAMINATION: GENERAL: A morbidly obese, middle-aged gentleman who is intubated, who appeared to be unstable in the emergency room. VITAL SIGNS: His blood pressure in the emergency room was anywhere between the 80s systolically to 140 systolically. Once stabilized, the patient was taken emergently to the cardiac biological lab technician. RESPIRATORY: His chest at that time showed some few scattered rales, otherwise unremarkable. CARDIOVASCULAR: Normal sinus rhythm. I cannot hear any significant murmurs or heaves or thrills. I cannot hear an S3 or an S4 at that time. ABDOMEN: Morbid obesity. I cannot palpate any aneurysms or tenderness or masses, but I could not determine any tenderness due to the patient being on the ventilator. EXTREMITIES: Femoral pulses are difficult to palpate. The right femoral pulse was very deep and very weak, but could feel a pulse finally. The left was also the same. I cannot palpate popliteal or pedal pulses; however, the patient does have morbid obesity. NEUROLOGIC: The patient was already sedated. LABORATORY DATA: Hemoglobin and hematocrit were stable. Potassium was 4.1, blood sugar was 250, creatinine was 1.61, and sodium was 140. CK-MB was 3.9, CK was 491, BNP was 674, and troponin-I again was 0.072. Original blood gas in the emergency room, pH was 7.14, pCO2 of 75, pO2 of 58.4, and O2 saturation was 79.5. CBC: Hemoglobin was 15, WBC of 13.8, and platelet count was 249,000. His EKG did show a sinus rhythm with acute inferior myocardial infarction with ST-segment elevations. IMPRESSION: 1. Acute inferior myocardial infarction. I decided to take the patient to the cardiac biological lab technician. He was already intubated and sedated. Despite having a normal cardiac catheterization in 2013 and negative stress test in 2019 this appeared to be acute STEMI. 2. Hypertension. We will continue to resume medications. 3. Nonischemic cardiomyopathy. It does not appear that he is followed up in the office. I am not sure whether he has seen another hearing screener or whether or not he may be seen by the heart failure clinic. 4. History of automatic implantable cardioverter-defibrillator implant due to cardiomyopathy. It is unclear as to whether or not when his last automatic implantable cardioverter-defibrillator check was performed, perhaps last year when he was in the hospital. 5. History of peripheral vascular disease. He has undergone stent placement to the right leg. I am uncertain exactly which level this was performed or where it was in his legs. At this time, the patient is doing better. He did go to cardiac biological lab technician. He did undergo angioplasty and stent placement to the large distal left circumflex, which fed another obtuse marginal branch. This is a dominant vessel. The right coronary has some sweo-ol-isjskmgi disease with a small vessel supplying mainly only the right ventricle. Left anterior descending artery and diagonal branches are free of any significant flow-limiting disease as well as a large intermediate branch. No left ventriculogram was performed. We will obtain an echocardiogram for the patient, but overall just evaluation of the coronary arteries, ejection fraction most likely is less than 20%, as there is very little movement or contractility of the heart. The inferior wall, however, does appear to be moving somewhat. Job ID: [id number] MTDD
[2019-11-12 19:21] LABS: Troponin I 75.953 ng/mL (< 0.028)
[2019-11-12] MEDS: Carvedilol 25 MG TAB PER TUBE SCH (20:42)
[2019-11-12] MEDS: Atorvastatin Calcium 40 MG TAB PER TUBE SCH (20:42)
[2019-11-12] MEDS: TICAGRELOR 90 MG TABLET PO SCH (20:42)
[2019-11-13] MEDS: Propofol 1,000 MG/100 ML VIAL IV PRN ×3 (00:08→18:48)
[2019-11-13] MEDS: DOPamine 400 MG/D5W 250 ML 250 ML IVPB SCH ×2 (02:46→13:36)
[2019-11-13 05:05] LABS: #Eosinphils 0.1 thou/uL (0.0-0.7); #Lymphocytes 1.6 thou/uL (1.20-3.40); #Monocytes 0.7 thou/uL (0.11-0.59); #Neutrophils 10.9 thou/uL (1.40-6.50); %Basophils 0.1 % (0.0-1.0); %Eosinophils 0.4 % (0.0-10.0); %Lymphocytes 11.9 % (21.0-51.0); %Neutrophils 82.6 % (42.0-75.0); Hemoglobin 14.5 g/dL (14.0-18.0); Mean Corpuscular HGB CONC 33.4 g/dL (32.0-36.0); Mean Corpuscular Hemoglobin 27.8 pg (27.0-31.0); Mean Corpuscular Volume 83.3 fL (78.0-98.0); Mean Platelet Volume 9.2 fL (7.4-10.4); Platelet Count 190 thou/uL (130-400); RBC Distribution Width 15.1 % (11.5-14.5); Red Blood Cell (RBC) Count 5.19 mill/uL (4.70-6.10); White Blood Cell (WBC) Count 13.2 thou/uL (4.8-10.8)
[2019-11-13 05:12] LABS: ALT (SGPT) 53 U/L (8-55); AST (SGOT) 222 U/L (5-34); Albumin 3.8 g/dL (3.5-5.0); Alkaline Phosphatase 69 U/L (40-110); Anion Gap 12 mmol/L (10-20); BUN (Urea Nitrogen) 21 mg/dL (8.9-20.6); Bilirubin, Total 0.7 mg/dL (0.2-1.2); Calc. Creatinine Clearance 119 mL/min (70-130); Carbon Dioxide 27 mmol/L (22-29); Cardiac Risk 5.1 (Less than 4.5); Chloride 107 mmol/L (98-107); Cholesterol 163 mg/dl (< 200 Desired); Estimated GFR-MDRD 70; Glucose 119 mg/dL (70-105); HDL Cholesterol 32 mg/dL (>60 Neg Risk); LDL Cholesterol, Calculated 97 mg/dL; Potassium 3.8 mmol/L (3.5-5.1); Protein, Total 6.8 g/dL (6.0-8.3); Sodium 142 mmol/L (136-145); Triglycerides 170 mg/dL (Less than 150)
--- NOTE | 2019-11-13 05:23 | CON ---
DATE OF CONSULTATION: HISTORY OF PRESENT ILLNESS: A 44-year-old obese gentleman, 124 kg, presented with respiratory rate of 24, intubated, sats 93%, and blood pressure . He came by EMS, short of breath for 1-1/2 hours. He was in distress at that time, intubated, given rocuronium and ketamine. Cardiac arrest for 4 minutes, one dose epi. X-ray shows CHF, was given 100 of Lasix, nitro. Taken to the label stamper by Cardiology. Please review the note. Single stent was placed apparently in the circ. The patient has been here before several times. History is extensively outlined. PAST MEDICAL HISTORY: Coronary artery disease, cardiomyopathy with EF 25%, renal failure, history of previous tobacco, and cannabinoid use. Peripheral vascular disease. PAST SURGICAL HISTORY: AICD, stent and cardiac cath. HOME MEDICATIONS: Presumably: 1. Hydralazine 10. 2. Aldactone 25. 3. Nitroglycerin 0.4. 4. Zestril 5. 5. Lasix 40. 6. Coreg 25. 7. Atorvastatin 40. 8. Aspirin 81. 9. Norvasc 10. ALLERGIES: NONE. REVIEW OF SYSTEMS: Rest of the review of systems, unobtainable. PHYSICAL EXAMINATION: GENERAL: He is intubated on the vent, sats are 97%, blood pressure 120/69 on pressors, respirations 26, afebrile. CHEST: Rhonchi, crackles. CARDIAC: Normal S1 and S2. No gallops. ABDOMEN: No masses. LABORATORY DATA: His troponin is 9.8. His creatinine is elevated at 1.6, BUN is 17, CK 491. Blood gas; pO2 was 58, pCO2 of 75, pH 7.41, rate of 26, 100%, 500, pressure support 10, PEEP of 8. White count 13,000, hemoglobin and hematocrit of 15 and 44, platelet count 249. IMPRESSION: Respiratory failure secondary to congestive heart failure, acute coronary syndrome, renal failure, morbid obesity, hypertension, cardiomyopathy, former smoker. PLAN: At this stage not weanable. We will continue basic supportive care, vent, neb treatments, cardiac care, diuretics. The vent is being adjusted. Empiric antibiotics. Serial exam. 45 minutes of critical care time. Job ID: [id number]
[2019-11-13] MEDS ORDERED: Sodium Chloride 0.9% (PF) 10 ML VIAL FS PRN (07:01)
[2019-11-13 07:25] LABS: Actual Bicarbonate (HCO3a) 24.9 mEq/L (22-28); CO2 Tension 30.4 mmHg (35.0-45.0); Calcium, Ionized (arterial) 1.15 mmol/L (1.12-1.30); Carboxyhemoglobin (COHb) 0.9 gm% (0.0-3.0); Hemoglobin (Hb) 14.5 g/dL (14.0-18.0); O2 Tension (PaO2), arterial 119.2 mmHg (80.0-100.0); Potassium - ABG Lab 3.57 mmol/L (3.70-5.30); pH, Arterial 7.53 (7.35-7.45)
[2019-11-13 07:27] LABS: Puncture Site LINE
--- NOTE | 2019-11-13 07:54 | RAD ---
EXAM: Single view of the chest HISTORY: Ventilated patient with respiratory failure COMPARISON: 11/12/2019 FINDINGS: Single view of the chest shows an enlarged but stable cardiomediastinal silhouette. The pa cemaker, lines, and tubes are unchanged in position. There is stable bilateral perihilar opacity and opacity in the right lung base. The bones are unremarkable. IMPRESSION: Stable multifocal infiltrates
[2019-11-13] MEDS: Lorazepam 2 MG/ML VIAL SLOW IVP PRN ×4 (08:03→16:11)
[2019-11-13] MEDS: Pantoprazole 40 MG VIAL IVP SCH (08:44)
[2019-11-13] MEDS: Spironolactone 25 MG TAB PO SCH (08:44)
[2019-11-13] MEDS: hydrALAZINE 10 MG TAB PO SCH ×3 (08:45→22:45)
[2019-11-13] MEDS: Furosemide 40 MG TAB PER TUBE SCH ×2 (08:45→13:31)
[2019-11-13] MEDS: Carvedilol 25 MG TAB PER TUBE SCH (08:45)
[2019-11-13] MEDS: TICAGRELOR 90 MG TABLET PO SCH ×2 (08:51→22:45)
[2019-11-13] MEDS ORDERED: Lisinopril 5 MG TAB PER TUBE SCH (09:00)
[2019-11-13 12:46] LABS: SARS-CoV-2 MS2 Positive; SARS-CoV-2 N Gene Negative; SARS-CoV-2 S Gene Negative; SARS-CoV-2 orf1ab Negative
--- NOTE | 2019-11-13 13:25 | CON ---
DATE OF CONSULTATION: Total critical care time, 35 minutes. HISTORY OF PRESENT ILLNESS: Mr. Adhikari recently presented with acute myocardial infarction on 11/12/2019. He underwent urgent coronary revascularization with a stent to the circumflex artery. He required intubation. He is currently on pressor support. He is intubated and sedated. Urine output has been dismal. PHYSICAL EXAMINATION: GENERAL: Currently, intubated and sedated. VITAL SIGNS: Blood pressure 108/64 via A-line. Heart rate in the 70s, respirations 20. NEUROLOGIC: The patient is alert and oriented x3 with no focal neurologic deficits. HEENT: Sclerae without icterus. Mouth has moist mucous membranes with normal pallor. NECK: No JVD. Carotid upstroke brisk. No bruits bilaterally. LUNGS: Clear to auscultation with unlabored respirations. BACK: No scoliosis or kyphosis. CARDIAC: Regular rate and rhythm with normal S1 and S2. No S3 or S4 noted. No significant rubs, murmurs, thrills, or gallops noted throughout the precordium. PMI is not displaced. There is no parasternal heave. ABDOMEN: Soft, nontender, nondistended. No peritoneal signs present. No hepatosplenomegaly. No abnormal striae. EXTREMITIES: 2+ femoral and 2+ dorsalis pedis pulses. No cyanosis, clubbing, or edema. SKIN: No gross abnormalities. PERTINENT LABORATORY DATA: Hemoglobin 14.5, hematocrit 43.3, platelet count 190. Creatinine 1.33, down from 1.6. Peak troponin 75. BNP of 674. IMPRESSION: 1. Acute inferolateral myocardial infarction, status post stent to the circumflex artery. 2. Cardiogenic shock. 3. Respiratory failure. 4. Previous history of nonischemic cardiomyopathy. RECOMMENDATIONS: 1. Add low-dose Dobutrex at 5 mcg. 2. Continue dopamine at 5 mcg. 3. Consult with Nephrology due to poor urine output if this continues. 4. Respiratory support per Dr. Alex Isaac. 5. Continue atorvastatin and aspirin, and discontinue Aggrastat. He was recently placed on ceftriaxone. We will hold carvedilol and lisinopril. May reinstitute carvedilol if blood pressure starts to come up. We would reinstitute at 6.25 one p.o. b.i.d. if blood pressure allows. Continue Brilinta. Job ID: [id number]
[2019-11-13] MEDS: cefTRIAXone\\ROCEPHIN 1 GM in Sodium Chloride 0.9% 100 ML IVPB SCH (13:31)
[2019-11-13] MEDS: Sodium Chloride 0.9% 1,000 ML IV SCH (16:11)
--- NOTE | 2019-11-13 17:00 | PRG ---
DATE OF SERVICE: 11/13/2019 SUBJECTIVE: Ryne Adhikari's events have been reviewed. OBJECTIVE: VITAL SIGNS: Respiratory rate 14, FiO2 is 40%, heart rate 71, blood pressure is 117/73. LUNGS: Clear anteriorly. HEART: Regular rhythm. ABDOMEN: Soft. EXTREMITIES: Without asymmetry. He is sedated for ventilation. IMAGING STUDIES: Chest radiograph showed bilateral infiltrates. LABORATORY DATA: White count 13.2, hemoglobin 14.5, and platelets 190. Sodium 142, potassium 3.8, chloride 107, bicarb 27, BUN 21, and creatinine 1.33. BNP yesterday was 674. IMPRESSION: 1. Respiratory failure with pulmonary edema, most likely after a sudden cardiac . 2. Hypertension. 3. Nonischemic cardiomyopathy. 4. Peripheral vascular disease with stenting in the past. 5. History of defibrillator. PLAN: Continue supportive care. CRITICAL CARE TIME: 30 minutes. Job ID: [id number]
--- NOTE | 2019-11-13 19:14 | EKG ---
Test Reason : POST STENT X1-CIR Blood Pressure : / mmHG Vent. Rate : 065 BPM Atrial Rate : 065 BPM P-R Int : 160 ms QRS Dur : 090 ms QT Int : 500 ms P-R-T Axes : 046 010 119 degrees QTc Int : 520 ms Normal sinus rhythm Inferior infarct appears acute T wave abnormality, consider anterolateral ischemia Prolonged QT Abnormal ECG No previous ECGs available Confirmed by DR. Sergio VANG ([id number]) on 11/13/2019 7:14:01 PM Referred By: KAREL Confirmed By:DR. Sergio VANG
--- NOTE | 2019-11-13 19:27 | EKG ---
Test Reason : Blood Pressure : / mmHG Vent. Rate : 075 BPM Atrial Rate : 075 BPM P-R Int : 154 ms QRS Dur : 098 ms QT Int : 510 ms P-R-T Axes : 057 -01 149 degrees QTc Int : 569 ms Normal sinus rhythm Inferior infarct (cited on or before 12-NOV-2019) T wave abnormality, consider anterolateral ischemia Prolonged QT Abnormal ECG When compared with ECG of 12-NOV-2019 09:00, (Unconfirmed) SD interval has decreased Serial changes of evolving Inferior infarct Present Confirmed by DR. Sergio VANG ([id number]) on 11/13/2019 7:27:41 PM Referred By: KAREL Confirmed By:DR. Sergio VANG
[2019-11-13] MEDS: Atorvastatin Calcium 40 MG TAB PER TUBE SCH (22:44)
[2019-11-14] MEDS: Propofol 1,000 MG/100 ML VIAL IV PRN ×4 (01:30→22:47)
[2019-11-14] MEDS: DOPamine 400 MG/D5W 250 ML 250 ML IVPB SCH (01:30)
[2019-11-14 04:45] LABS: Anion Gap 12 mmol/L (10-20); BUN (Urea Nitrogen) 20 mg/dL (8.9-20.6); Calc. Creatinine Clearance 138 mL/min (70-130); Calcium 8.5 mg/dL (7.8-10.44); Carbon Dioxide 26 mmol/L (22-29); Chloride 109 mmol/L (98-107); Estimated GFR-MDRD 84; Glucose 106 mg/dL (70-105); Potassium 3.6 mmol/L (3.5-5.1); Sodium 143 mmol/L (136-145)
[2019-11-14 06:46] LABS: Actual Bicarbonate (HCO3a) 23.2 mEq/L (22-28); Base Excess (BEa) -0.5 mEq/L (-2.0 to +3.0); CO2 Tension 35.1 mmHg (35.0-45.0); Calcium, Ionized (arterial) 1.12 mmol/L (1.12-1.30); Carboxyhemoglobin (COHb) 0.7 gm% (0.0-3.0); Hemoglobin (Hb) 13.4 g/dL (14.0-18.0); O2 Tension (PaO2), arterial 93.5 mmHg (80.0-100.0); Potassium - ABG Lab 3.66 mmol/L (3.70-5.30); pH, Arterial 7.44 (7.35-7.45)
[2019-11-14 07:00] LABS: Puncture Site ALINE
[2019-11-14 07:01] LABS: ALV-art Gradient 147.825 (0-20)
[2019-11-14] MEDS: Sodium Chloride 0.9% 1,000 ML IV SCH ×2 (08:08→22:47)
[2019-11-14] MEDS: Spironolactone 25 MG TAB PO SCH (08:08)
[2019-11-14] MEDS: Lorazepam 2 MG/ML VIAL SLOW IVP PRN ×2 (08:08→15:56)
--- NOTE | 2019-11-14 08:32 | RAD ---
PORTABLE CHEST: DATE: 11/14/2019. PROVIDED CLINICAL HISTORY: Respiratory insufficiency. FINDINGS: Comparison 11/13/2019. Significant interval change with respect to the prior examination is not appar ent. IMPRESSION: As above. POS: BASILIO
[2019-11-14] MEDS: hydrALAZINE 10 MG TAB PO SCH ×3 (08:42→20:20)
[2019-11-14] MEDS: Pantoprazole 40 MG VIAL IVP SCH (08:42)
[2019-11-14] MEDS: TICAGRELOR 90 MG TABLET PO SCH ×2 (08:42→20:19)
[2019-11-14] MEDS: Furosemide 40 MG TAB PER TUBE SCH (08:43)
--- NOTE | 2019-11-14 09:11 | PRG ---
DATE OF SERVICE: SUBJECTIVE: Mr. Adhikari did test COVID negative. His blood pressure has been increased. He is on dopamine and dobutamine. He has had short few runs of bradycardia but appears stable. His chest x-ray yesterday appeared so patchy infiltrates. He was given IV fluids due to a decreased urine output yesterday but his creatinine appears stable with appropriate urine output. OBJECTIVE: VITAL SIGNS: 167/71, pulse 66, temperature afebrile. LUNGS: Rhonchi and rales bilaterally. HEART: Regular rate and rhythm. ABDOMEN: Soft, nontender. EXTREMITIES: No edema. LABORATORY DATA: Pertinent labs: Creatinine 1.14 with a chloride of 109. IMPRESSION: 1. Acute myocardial infarction. 2. Previous history of nonischemic cardiomyopathy. 3. Status post ICD. 4. Congestive heart failure. RECOMMENDATIONS: 1. Discontinue IV fluids. 2. Discontinue Aggrastat. 3. Discontinue dopamine and continue dobutamine due to intermittent episodes of bradycardia. 4. Given multifocal infiltrates, so we will hold IV fluids. We will change p.o. Lasix to IV Lasix. Appreciate Pulmonary input. Job ID: [id number]
[2019-11-14] MEDS: Lisinopril 10 MG TAB PO SCH (09:23)
[2019-11-14] MEDS ORDERED: Furosemide 40 MG/4 ML VIAL IVP SCH (09:45)
--- NOTE | 2019-11-14 11:41 | PQF ---
CLINICAL DOCUMENTATION IMPROVEMENT CLARIFICATION FORM: ICD-10 Updated PLEASE DO AN ADDENDUM TO THE PROGRESS NOTE WITH ANY DOCUMENTATION UPDATES OR ADDITIONS AND CARRY THROUGH TO DC SUMMARY. THANK YOU. DATE: 11/14/19 ATTN: DR. CALLOWAY Please exercise your independent, professional judgment in responding to the clarification form. Clinical indicators are provided on the bottom of this form for your review Please check appropriate box(s): HEART FAILURE: A. ACUITY [ ] Acute [ ] Acute on Chronic [ ] Chronic B. TYPE [ ] Systolic / HFrEF [ ] Diastolic / HFpEF [ ] Combined Systolic / Diastolic [ ] Hypertensive Heart and Kidney disease [ ] Hypertensive Heart Disease [ ] Hypertensive Kidney Disease [ ] Other diagnosis [ ] Unable to determine In addition, please specify: Present on Admission (POA): [ ] Yes [ ] No [ ] Unable to determine For continuity of documentation, please document condition throughout progress notes and discharge summary. Thank You. CLINICAL INDICATORS - SIGNS / SYMPTOMS / LABS / RESULTS AND LOCATION IN EMR [place] PN: "CONGESTIVE HEART FAILURE" PN 11/13 (CARDIOLOGY): "CONGESTIVE HEART FAILURE" BNP 11/11: 674 CHEST XRAY 11/12: MULTIFOCAL INFILTRATES RISKS: H/O CARDIOMYOPATHY (H&P) AICD (H&P) ADMIT FOR AMI (H&P) TREATMENT: LASIX PER TUBE CHANGED TO IV (SEE AUG 01) LISINOPRIL (START 11/13) CRITICAL CARE MONITORING ECHO 11/12 (This form is maintained as a part of the permanent medical record) 2014 [employer]. All Rights Reserved TRACE [email or web address] [facility]PITAL CENTERMario Alberto
--- NOTE | 2019-11-14 12:17 | PRG ---
DATE OF SERVICE: 11/14/2019 SUBJECTIVE: Mr. Adhikari was not improved. He coughs with sternal rub. OBJECTIVE: VITAL SIGNS: His heart rate is in the 70s, blood pressure 125/79, and respiratory rate in the teens. Intake and output, positive 1209. HEAD AND NECK: Unremarkable except for sluggish pupils. He does have a gag and cough. LUNGS: Remarkable for coarse equal breath sounds. HEART: Regular rhythm. S1, S2 are normal. ABDOMEN: Soft. No guarding. No masses. EXTREMITIES: Without clubbing, cyanosis, or edema. unchanged. LABORATORY DATA: Sodium 143, potassium 3.6, chloride 109, bicarb 26, BUN 20, and creatinine down to 1.14. His troponin peaked at 75 two days ago. IMPRESSION: Status post [id number]-[id number] cardiac arrest with anoxic injury. PLAN: Serial neuro exams. Will be switched to Precedex. CRITICAL CARE TIME: 30 minutes. Job ID: [id number]
[2019-11-14] MEDS: Furosemide 40 MG/4 ML VIAL IVP SCH (13:38)
[2019-11-14] MEDS: cefTRIAXone\\ROCEPHIN 1 GM in Sodium Chloride 0.9% 100 ML IVPB SCH (13:38)
[2019-11-14] MEDS ORDERED: DOPamine 400 MG/D5W 250 ML 250 ML ONE (15:24)
[2019-11-14] MEDS: Atorvastatin Calcium 40 MG TAB PER TUBE SCH (20:19)
[2019-11-14] MEDS ORDERED: DOPamine 400 MG/D5W 250 ML 250 ML IVPB SCH (20:30)
[2019-11-15 05:04] LABS: Anion Gap 10 mmol/L (10-20); BUN (Urea Nitrogen) 23 mg/dL (8.9-20.6); Calc. Creatinine Clearance 113 mL/min (70-130); Calcium 8.9 mg/dL (7.8-10.44); Carbon Dioxide 30 mmol/L (22-29); Chloride 107 mmol/L (98-107); Estimated GFR-MDRD 66; Glucose 101 mg/dL (70-105); Potassium 3.5 mmol/L (3.5-5.1); Sodium 143 mmol/L (136-145)
[2019-11-15 07:29] LABS: Actual Bicarbonate (HCO3a) 24.1 mEq/L (22-28); Base Excess (BEa) 0.3 mEq/L (-2.0 to +3.0); CO2 Tension 36.3 mmHg (35.0-45.0); Carboxyhemoglobin (COHb) 0.6 gm% (0.0-3.0); Hemoglobin (Hb) 13.2 g/dL (14.0-18.0); O2 Tension (PaO2), arterial 89.6 mmHg (80.0-100.0); Potassium - ABG Lab 3.56 mmol/L (3.70-5.30); pH, Arterial 7.44 (7.35-7.45)
--- NOTE | 2019-11-15 07:57 | RAD ---
XR Chest 1 View Portable History: Ventilated patient Comparison: Radiograph prior day Findings: Patient is intubated with endotracheal tube tip at the level of clavicles. Enteric tube tip below diaphragm although out of field of view. Heart size is enlarged. Atelectatic changes are similar. No new confluent airspace consolidation, pneumothorax or effusion Impression: Similar examination of the chest.
[2019-11-15 07:59] LABS: ALV-art Gradient 150.225 (0-20); Puncture Site RBA
[2019-11-15] MEDS: Furosemide 40 MG/4 ML VIAL IVP SCH ×2 (08:54→13:31)
[2019-11-15] MEDS: Aspirin 81 mg Enteric Coated Tablet PO SCH (08:54)
[2019-11-15] MEDS: Lisinopril 10 MG TAB PO SCH (08:54)
[2019-11-15] MEDS: TICAGRELOR 90 MG TABLET PO SCH ×2 (08:54→19:17)
[2019-11-15] MEDS: Spironolactone 25 MG TAB PO SCH (08:54)
[2019-11-15] MEDS: hydrALAZINE 10 MG TAB PO SCH ×3 (08:54→19:17)
[2019-11-15] MEDS: Pantoprazole 40 MG VIAL IVP SCH (08:55)
[2019-11-15] MEDS: Propofol 1,000 MG/100 ML VIAL IV PRN ×3 (10:13→19:24)
--- NOTE | 2019-11-15 10:25 | PRG ---
DATE OF SERVICE: 11/15/2019 SUBJECTIVE: continues to be intubated and sedated. They have tried to wean off his dopamine yesterday and could not. It has been weaned off this morning. Blood pressure and heart rate remain stable. Unfortunately, he has not been amenable and continues to be intubated. OBJECTIVE: VITAL SIGNS: Blood pressure 121/75, pulse 83, and respiratory rate 20. LUNGS: Clear to auscultation. HEART: Regular rate and rhythm. ABDOMEN: Soft, nontender, and nondistended. EXTREMITIES: No edema. PERTINENT LABORATORY DATA: Hemoglobin 14.7 and white blood cell count 13.2. Creatinine 1.4 . IMPRESSION: 1. Acute myocardial infarction. 2. Previous history of nonischemic cardiomyopathy. 3. Status post implantable cardiac defibrillator. 4. Respiratory failure. RECOMMENDATIONS: 1. Dopamine and dobutamine had been weaned off. 2. Continue vent support per Pulmonary. 3. Continue atorvastatin, lisinopril, spironolactone, and Brilinta. Add aspirin 81 q.a.m. Job ID: [id number]
[2019-11-15] MEDS: Lorazepam 2 MG/ML VIAL SLOW IVP PRN ×2 (10:55→22:24)
[2019-11-15] MEDS: cefTRIAXone\\ROCEPHIN 1 GM in Sodium Chloride 0.9% 100 ML IVPB SCH (13:31)
--- NOTE | 2019-11-15 13:51 | PRG ---
DATE OF SERVICE: 11/15/2019 SUBJECTIVE: Mr. Adhikari does not do anything meaningful. He coughs. He does spontaneously move his extremities a little bit to a sternal rub. OBJECTIVE: VITAL SIGNS: Respiratory rates in the teens, FiO2 is at 40. Blood pressure 100/73, heart rate 72, and respiratory rates in the 20s. LUNGS: Clear. HEART: Regular rhythm. ABDOMEN: Soft. EXTREMITIES: Without edema. LABORATORY DATA: Chest x-ray is unchanged. Sodium 143, potassium 3.5, chloride 107, bicarb 30, BUN 23, creatinine 1.4. PH 7.44, CO2 of 36, pO2 of 89. IMPRESSION: Anoxic brain injury after an vcy-kc-kfpzdeuj arrest. He will need a tracheostomy and PEG placement next week most likely to continue with supportive care. Job ID: [id number]
[2019-11-15] MEDS: Atorvastatin Calcium 40 MG TAB PER TUBE SCH (19:17)
[2019-11-16 04:11] LABS: Anion Gap 15 mmol/L (10-20); BUN (Urea Nitrogen) 29 mg/dL (8.9-20.6); Calc. Creatinine Clearance 97 mL/min (70-130); Calcium 9.1 mg/dL (7.8-10.44); Carbon Dioxide 26 mmol/L (22-29); Chloride 108 mmol/L (98-107); Estimated GFR-MDRD 56; Glucose 109 mg/dL (70-105); Potassium 3.5 mmol/L (3.5-5.1); Sodium 145 mmol/L (136-145)
[2019-11-16 07:02] LABS: Actual Bicarbonate (HCO3a) 20.9 mEq/L (22-28); Base Excess (BEa) -2.5 mEq/L (-2.0 to +3.0); Calcium, Ionized (arterial) 1.16 mmol/L (1.12-1.30); Carboxyhemoglobin (COHb) 0.8 gm% (0.0-3.0); Hemoglobin (Hb) 13.3 g/dL (14.0-18.0); O2 Tension (PaO2), arterial 117.3 mmHg (80.0-100.0); Potassium - ABG Lab 3.49 mmol/L (3.70-5.30); pH, Arterial 7.43 (7.35-7.45)
[2019-11-16 07:19] LABS: Puncture Site RRAD
--- NOTE | 2019-11-16 07:45 | PRG ---
DATE OF SERVICE: 11/16/2019 35 minutes critical time. SUBJECTIVE: The patient remains intubated on mechanical ventilation. Currently sedated on Precedex and propofol. I am told the main reason for that is he coughs. He is not following any commands, do not withdraw to pain for me this morning. OBJECTIVE: VITAL SIGNS: His temperature 99.1, pulse 76, blood pressure 104/58, O2 saturation 100%. 24-hour intake 1728, output 2020. HEENT: Pupils are sluggishly reactive. Sclerae anicteric. Oropharynx is clear. NECK: No JVD. LUNGS: Clear anteriorly. CARDIOVASCULAR: S1 and S2. Regular. ABDOMEN: Soft. EXTREMITIES: No clubbing, cyanosis, or edema. LABORATORY DATA: ABG; pH 7.43, pCO2 of 32, PO2 of 117 on SIMV rate of 14, tidal volume of 550, PEEP 8, pressure support 10, FiO2 of 40%. Sodium 145, potassium 3.5, chloride 108, CO2 of 26, BUN 29, creatinine 1.6, glucose 109. ASSESSMENT: 1. Status post cardiopulmonary arrest secondary to a myocardial infarction. 2. Anoxic brain injury. PLAN: The patient basically needs a tracheostomy and PEG tube placement next week if we have not seen neurologic improvement. We would try to minimize the sedation as much as possible. We can go ahead and stop the daily ABGs. Job ID: [id number]
[2019-11-16] MEDS: Spironolactone 25 MG TAB PO SCH (08:35)
[2019-11-16] MEDS: hydrALAZINE 10 MG TAB PO SCH ×3 (08:35→20:57)
[2019-11-16] MEDS: Lisinopril 10 MG TAB PO SCH (08:38)
[2019-11-16] MEDS: Propofol 1,000 MG/100 ML VIAL IV PRN ×2 (08:39→18:00)
[2019-11-16] MEDS: Pantoprazole 40 MG VIAL IVP SCH (08:39)
[2019-11-16] MEDS: Aspirin 81 mg Enteric Coated Tablet PO SCH (08:39)
[2019-11-16] MEDS: Furosemide 40 MG/4 ML VIAL IVP SCH ×2 (08:39→13:44)
[2019-11-16] MEDS: TICAGRELOR 90 MG TABLET PO SCH ×2 (08:44→20:57)
--- NOTE | 2019-11-16 10:56 | PRG ---
DATE OF SERVICE: 11/16/2019 SUBJECTIVE: Mr. Adhikari remains intubated, mildly sedated. The patient, when he wakes up, bites more on the endotracheal tube. OBJECTIVE: LUNGS: Clear. CARDIAC: Normal S1, normal S2. ABDOMEN: Soft and nontender. EXTREMITIES: Only mild edema. DIAGNOSTIC DATA: Chest x-ray shows cardiomegaly. ASSESSMENT: 1. Status post myocardial infarction. 2. Cardiomyopathy. 3. Anoxic brain injury. PLAN: 1. Continue current medical regimen. 2. We will decrease JUAN inhibitors and diuretics, as it looks like his renal function is beginning to worsen. Job ID: [id number]
--- NOTE | 2019-11-16 12:30 | EKG ---
Test Reason : Blood Pressure : / mmHG Vent. Rate : 098 BPM Atrial Rate : 098 BPM P-R Int : 210 ms QRS Dur : 114 ms QT Int : 392 ms P-R-T Axes : 043 013 129 degrees QTc Int : 500 ms Sinus rhythm with 1st degree A-V block Possible Left atrial enlargement Inferior infarct , possibly acute T wave abnormality, consider lateral ischemia Prolonged QT * ACUTE ID * Consider right ventricular involvement in acute inferior infarct Abnormal ECG Confirmed by KENDALL CHU DO ([id number]), editor trade journal LORRAINE DESIR ([id number]) on 11/16/2019 12:30:21 PM Referred By: Confirmed By:KENDALL CHU DO
[2019-11-16] MEDS: Lorazepam 2 MG/ML VIAL SLOW IVP PRN ×2 (13:10→15:12)
[2019-11-16] MEDS: cefTRIAXone\\ROCEPHIN 1 GM in Sodium Chloride 0.9% 100 ML IVPB SCH (13:47)
[2019-11-16] MEDS: Scopolamine 1.5 mg/72 hour Patch TOP SCH (16:12)
[2019-11-16] MEDS: Atorvastatin Calcium 40 MG TAB PER TUBE SCH (20:57)
[2019-11-17] MEDS: Propofol 1,000 MG/100 ML VIAL IV PRN ×2 (01:53→07:28)
[2019-11-17 05:48] LABS: Anion Gap 14 mmol/L (10-20); BUN (Urea Nitrogen) 46 mg/dL (8.9-20.6); Calc. Creatinine Clearance 70 mL/min (70-130); Calcium 8.9 mg/dL (7.8-10.44); Carbon Dioxide 24 mmol/L (22-29); Chloride 109 mmol/L (98-107); Estimated GFR-MDRD 38; Glucose 113 mg/dL (70-105); Potassium 3.4 mmol/L (3.5-5.1); Sodium 144 mmol/L (136-145)
[2019-11-17] MEDS: Sodium Chloride 0.9% 1,000 ML IV SCH (07:28)
--- NOTE | 2019-11-17 07:58 | PRG ---
DATE OF SERVICE: 11/17/2019 TIME SPENT: 35 minutes critical care time. SUBJECTIVE: The patient remains intubated on mechanical ventilation. We have seen no improvement in his neurologic status, basically all he does is cough with stimulation. It is noted that he is on propofol and Precedex. I have instructed the nursing staff to hold the Precedex and see how he does. OBJECTIVE: VITAL SIGNS: His temperature is 100.9, heart rate 73, blood pressure 102/53, O2 saturation 100%. He is currently on no vasopressors. 24-hour intake 1654, output 1054. HEENT: Pupils are sluggishly reactive. Sclerae anicteric. Oropharynx clear. NECK: No JVD. LUNGS: Clear anteriorly. CARDIAC: S1, S2. Regular. ABDOMEN: Soft, obese, nontender. EXTREMITIES: No clubbing, cyanosis, or edema. LABORATORY DATA: Sodium 144, potassium 3.4, chloride 109, CO2 of 24, BUN 46, creatinine 2.3, and glucose 113. White blood cell count 13.2, hematocrit 43.3, and platelet count 190. ABG; pH of 7.43, pCO2 of 32, pO2 of 117 on SIMV of 14, tidal volume of 550, PEEP of 8, pressure support 10, FiO2 40%. ASSESSMENT: 1. Febrile illness, likely indicative of aspiration. 2. Status post cardiopulmonary arrest secondary to myocardial infarction. 3. Severe anoxic brain injury. 4. Worsening kidney function. PLAN: 1. I will leave this to Cardiology, but it might be advisable to stop the JUAN inhibitor and spironolactone for the time being. 2. Not weanable secondary to mental status issues. 3. Likely needs tracheostomy, PEG tube placement, if family wishes to continue with aggressive care long-term. This patient's prognosis is quite poor. Job ID: [id number]
[2019-11-17] MEDS: Spironolactone 25 MG TAB PO SCH (08:35)
[2019-11-17] MEDS: Aspirin 81 mg Enteric Coated Tablet PO SCH (08:35)
[2019-11-17] MEDS: TICAGRELOR 90 MG TABLET PO SCH ×2 (08:36→20:30)
[2019-11-17] MEDS: Furosemide 40 MG/4 ML VIAL IVP SCH (08:36)
[2019-11-17] MEDS: Pantoprazole 40 MG VIAL IVP SCH (08:36)
[2019-11-17] MEDS: Metoclopramide HCl 10 MG/2 ML VIAL IVP SCH ×3 (08:39→20:31)
[2019-11-17] MEDS ORDERED: Lisinopril 5 MG TAB PO SCH (09:00)
[2019-11-17] MEDS: hydrALAZINE 10 MG TAB PO SCH ×3 (09:19→20:30)
[2019-11-17] MEDS ORDERED: [UNRECOGNIZED DRUG - REMARK] FS PRN (09:30)
[2019-11-17] MEDS ORDERED: Potassium Chloride 20 MEQ TAB PO SCH (09:45)
[2019-11-17] MEDS ORDERED: Norepinephrine 8 MG/0.9% NS 0 ML ONE (10:40)
--- NOTE | 2019-11-17 11:59 | PRG ---
DATE OF SERVICE: 11/17/2019 SUBJECTIVE: Mr. Adhikari is extubated. He is awake. OBJECTIVE: VITAL SIGNS: His blood pressure is 140/75, pulse 90 and it is sinus. LUNGS: Clear. CARDIAC: Normal S1, normal S2. ABDOMEN: Soft, nontender. He is obese. EXTREMITIES: No edema. ASSESSMENT: 1. Status post myocardial infarction. 2. Cardiomyopathy. 3. Anoxic brain injury. He is awake, responding appropriately off the ventilator. 4. Creatinine worsened to 0.26. Diuretics and JUAN inhibitors were reduced yesterday. PLAN: 1. Further reduce furosemide. 2. Further reduce lisinopril. 3. Dr. Loco will see the patient tomorrow. Job ID: [id number]
[2019-11-17] MEDS: cefTRIAXone\\ROCEPHIN 1 GM in Sodium Chloride 0.9% 100 ML IVPB SCH (14:05)
[2019-11-17] MEDS ORDERED: Potassium Chloride 40 MEQ in Premix Bag 1 BAG IVPB PRN (16:30)
[2019-11-17] MEDS ORDERED: Metoprolol Tartrate 5 MG/5 ML VIAL IVP PRN (16:48)
[2019-11-17] MEDS: Atorvastatin Calcium 40 MG TAB PER TUBE SCH (20:30)
[2019-11-18] MEDS: Metoclopramide HCl 10 MG/2 ML VIAL IVP SCH ×4 (03:16→21:45)
[2019-11-18 05:06] LABS: Anion Gap 16 mmol/L (10-20); BUN (Urea Nitrogen) 34 mg/dL (8.9-20.6); Calc. Creatinine Clearance 112 mL/min (70-130); Calcium 9.3 mg/dL (7.8-10.44); Carbon Dioxide 22 mmol/L (22-29); Chloride 115 mmol/L (98-107); Estimated GFR-MDRD 66; Glucose 114 mg/dL (70-105); Potassium 3.6 mmol/L (3.5-5.1); Sodium 149 mmol/L (136-145)
--- NOTE | 2019-11-18 08:46 | PRG ---
DATE OF SERVICE: 11/18/2019 SUBJECTIVE: Ryne Adhikari remains in the ICU, still somewhat encephalopathic, weak. Denies any pain or discomfort this morning. OBJECTIVE: VITAL SIGNS: Pulse is 97, blood pressure 160/87 respiratory rate 18. CHEST: No wheezing or crackles. CARDIAC: Normal S1, S2. No gallops. ABDOMEN: No masses. LABORATORY DATA: Creatinine 1.4. IMPRESSION: Respiratory failure, congestive heart failure, encephalopathy. PLAN: Discontinue antibiotics. Cultures are negative. Continue PT, supportive care. Disposition as per Cardiology. We will follow while in the ICU. Job ID: [id number]
[2019-11-18] MEDS ORDERED: Furosemide 40 MG/4 ML VIAL IVP SCH (09:00)
[2019-11-18] MEDS ORDERED: Lisinopril 5 MG TAB PO SCH (09:00)
[2019-11-18] MEDS: Pantoprazole 40 MG VIAL IVP SCH (09:53)
[2019-11-18] MEDS: hydrALAZINE 10 MG TAB PO SCH ×3 (09:53→21:45)
[2019-11-18] MEDS: Aspirin 81 mg Enteric Coated Tablet PO SCH (09:53)
[2019-11-18] MEDS: Spironolactone 25 MG TAB PO SCH (09:54)
[2019-11-18] MEDS: TICAGRELOR 90 MG TABLET PO SCH ×2 (09:54→21:45)
--- NOTE | 2019-11-18 16:24 | PRG ---
DATE OF SERVICE: 11/18/2019 SUBJECTIVE: Mr. Adhikari is out on telemetry now. He is out of the intensive care unit. He wakes up and answers appropriately. OBJECTIVE: VITAL SIGNS: Blood pressure is high at 154/85, pulse 78 and regular. LUNGS: Clear. CARDIAC: Normal S1, normal S2. ABDOMEN: Soft and nontender. EXTREMITIES: No edema. ASSESSMENT: 1. Status post myocardial infarction. 2. Status post hypoxic brain injury, seems to be gradually improving. 3. Hypertension. PLAN: 1. Increase lisinopril. 2. Add beta blockers. Job ID: [id number]
[2019-11-18] MEDS: Carvedilol 3.125 MG TAB PO SCH (18:03)
[2019-11-18] MEDS: Lisinopril 5 MG TAB PO SCH (21:45)
[2019-11-18] MEDS: Atorvastatin Calcium 40 MG TAB PER TUBE SCH (21:45)
[2019-11-18] MEDS: cloNIDine 0.1 MG TAB PO PRN (22:45)
[2019-11-19] MEDS: Metoclopramide HCl 10 MG/2 ML VIAL IVP SCH ×2 (02:10→09:17)
[2019-11-19 05:13] LABS: Anion Gap 14 mmol/L (10-20); BUN (Urea Nitrogen) 30 mg/dL (8.9-20.6); Calc. Creatinine Clearance 120 mL/min (70-130); Calcium 9.6 mg/dL (7.8-10.44); Carbon Dioxide 22 mmol/L (22-29); Chloride 119 mmol/L (98-107); Estimated GFR-MDRD 72; Glucose 114 mg/dL (70-105); Potassium 3.4 mmol/L (3.5-5.1); Sodium 152 mmol/L (136-145)
[2019-11-19] MEDS ORDERED: D5 1/2 NS w/10 mEq KCl 1,000 ML/1,000 ML BAG IV SCH (08:45)
[2019-11-19] MEDS: TICAGRELOR 90 MG TABLET PO SCH ×2 (09:00→21:29)
[2019-11-19] MEDS: hydrALAZINE 10 MG TAB PO SCH (09:00)
[2019-11-19] MEDS: Lisinopril 5 MG TAB PO SCH ×2 (09:00→21:28)
[2019-11-19] MEDS: Aspirin 81 mg Enteric Coated Tablet PO SCH (09:00)
[2019-11-19] MEDS: Carvedilol 3.125 MG TAB PO SCH ×2 (09:01→16:56)
[2019-11-19] MEDS: Spironolactone 25 MG TAB PO SCH (09:01)
[2019-11-19] MEDS: Pantoprazole 40 MG VIAL IVP SCH (09:01)
[2019-11-19] MEDS ORDERED: hydrALAZINE 10 MG TAB PO SCH (10:15)
--- NOTE | 2019-11-19 10:23 | PRG ---
DATE OF SERVICE: 11/19/2019 SUBJECTIVE: Ryne Adhikari is a 44-year-old gentleman, status post respiratory failure, CHF, still slightly encephalopathic, but more appropriate. OBJECTIVE: VITAL SIGNS: Temperature 98, pulse 92, sats are 88% on room air, blood pressure 159/98. CHEST: Decreased breath sounds. No wheezing. CARDIAC: Normal S1, S2. No gallops. ABDOMEN: No masses. LABORATORY DATA: Sodium is slightly elevated at 152, it may be due to excessive diuretics. ASSESSMENT: Congestive heart failure, respiratory failure, encephalopathy. PLAN: Agree with low-dose hydration. We will follow. Job ID: [id number]
[2019-11-19] MEDS ORDERED: hydrALAZINE 25 MG TAB PO SCH (10:30)
--- NOTE | 2019-11-19 12:56 | PRG ---
DATE OF SERVICE: 11/19/2019 SUBJECTIVE: Mr. Adhikari is more alert and awake today. He is eating some, but not a lot. No chest pain or pressure. OBJECTIVE: VITAL SIGNS: Blood pressure 146/86, pulse 70 and regular. LUNGS: Clear. CARDIAC: Normal S1, normal S2. ABDOMEN: Soft and nontender. EXTREMITIES: Obese and nontender. ASSESSMENT: 1. Status post myocardial infarction. 2. Congestive heart failure, systolic, chronic, stable. 3. Renal insufficiency. PLAN: 1. In view of the renal insufficiency, we will continue to monitor kidney function, but it does appear to be stable. 2. Continue Coreg and lisinopril at a reduced dose. Increase Coreg as needed for help with blood pressure. 3. He is hypernatremic. We will add some free water. 4. Ask the hospitalist to help with his general medical care. Job ID: [id number]
[2019-11-19] MEDS: hydrALAZINE 25 MG TAB PO SCH ×2 (16:56→21:29)
[2019-11-19] MEDS: Scopolamine 1.5 mg/72 hour Patch TOP SCH (16:56)
[2019-11-19 18:18] LABS: Hemoglobin 12.6 g/dL (14.0-18.0); Mean Corpuscular HGB CONC 34.3 g/dL (32.0-36.0); Mean Corpuscular Hemoglobin 28.5 pg (27.0-31.0); Mean Corpuscular Volume 82.9 fL (78.0-98.0); Mean Platelet Volume 7.8 fL (7.4-10.4); Platelet Count 295 thou/uL (130-400); RBC Distribution Width 14.7 % (11.5-14.5); Red Blood Cell (RBC) Count 4.43 mill/uL (4.70-6.10)
[2019-11-19 18:39] LABS: Anion Gap 11 mmol/L (10-20); BUN (Urea Nitrogen) 25 mg/dL (8.9-20.6); Calc. Creatinine Clearance 125 mL/min (70-130); Calcium 9.4 mg/dL (7.8-10.44); Carbon Dioxide 22 mmol/L (22-29); Chloride 122 mmol/L (98-107); Estimated GFR-MDRD 83; Glucose 119 mg/dL (70-105); Potassium 3.4 mmol/L (3.5-5.1); Sodium 152 mmol/L (136-145)
--- NOTE | 2019-11-19 18:49 | CON ---
DATE OF CONSULTATION: 11/19/2019 REASON FOR CONSULTATION: Medical management. HISTORY OF PRESENT ILLNESS: This is a 44-year-old male with a past medical history of nonischemic cardiomyopathy, PVD, hypertension, who presented to the emergency room with chest pain and shortness of breath. Shortly after gone to respiratory and cardiac arrest, the patient was given nitroglycerin, 100 mg of IV Lasix, 300 mg of rectal aspirin, 5000 units of heparin. EKG showed inferior STEMI. The patient was taken to the home [facility] emergently and was found to have a 100% stenosis on the left mid circumflex. The patient underwent stent placement to the left circumflex. The patient has been treated with aspirin, statin, and ticagrelor. He was in the CCU and was extubated on 11/16. He was diuresed with IV Lasix. He was started on lisinopril and Coreg. The patient is thought to have some form of anoxic brain injury and rehab placement is being considered. Therefore, hospitalist was consulted for further management. PAST MEDICAL HISTORY: 1. Peripheral vascular disease, status post stent placement to the right leg. 2. AICD implant. 3. Hypertension. 4. Peripheral vascular disease. PAST MEDICAL HISTORY: 1. AICD. 2. Stent placement in the right leg. FAMILY HISTORY: The patient denies family history of heart disease. SOCIAL HISTORY: The patient reports that he smokes marijuana, however, he does not smoke cigarettes. He denies alcohol consumption. He states that he lives with his family members. HOME MEDICATIONS: 1. Coreg 25 mg b.i.d. 2. Amlodipine 10 mg daily. 3. Aspirin 81 mg daily. 4. Atorvastatin 40 mg q.p.m. 5. Furosemide 40 mg b.i.d. 6. Hydralazine 10 mg t.i.d. 7. Lisinopril 5 mg daily. 8. Spironolactone 25 mg daily. PHYSICAL EXAMINATION: VITAL SIGNS: Temperature 98.7, heart rate 77, respiratory rate 16, O2 saturation 97% on 2 L nasal cannula, blood pressure 139/87. GENERAL: The patient is alert and awake. He states that the month is November, the year is 2019, and he is aware that he is in the hospital. He has mild cognitive impairment and has slow speech. CVS: Regular rate and rhythm with no murmurs, rubs, or gallops. LUNGS: Clear to auscultation bilaterally. ABDOMEN: Positive bowel sounds, soft, nontender, nondistended. EXTREMITIES: There is no edema. HEENT: The patient has a very dry mouth. NEURO: Cranial nerves 2 through 12 are intact. He has 5/5 strength in all 4 extremities. He has intact sensation in all 4 extremities. He moves all 4 extremities spontaneously. PERTINENT LABORATORY DATA: CBC on 11/12: White count 13.2, hemoglobin 14.5, hematocrit 43.3, platelet count 190. BMP on 11/19/2019: Sodium is 152, potassium 3.4, chloride 119, carbon dioxide 22, BUN 30, creatinine 1.31, glucose 114. UA on 11/11: Unremarkable, 7 to 10 white blood cells. U-tox :is negative. COVID PCR on 11/11: Negative. IMAGING STUDIES: Chest x-ray on 11/11: Diffuse bilateral lung opacities. Chest x-ray on 11/14: No new confluent airspace consolidation. ASSESSMENT AND PLAN: This is a 44-year-old male with past medical history of hypertension, nonischemic cardiomyopathy, PVD, who presented to the emergency room with ST-segment elevation myocardial infarction. He was intubated and subsequently extubated. He is still requiring oxygen. He does have some mild encephalopathy and is working on eating. He is being looked into rehab placement. 1. Acute ST-segment elevation myocardial infarction, status post stent placement to the left circumflex: - continue aspirin, statin, Brilinta. 2. Hypertension: controlled - continue Coreg 6.25 mg p.o. b.i.d. and hydralazine 25 mg p.o. t.i.d. Continue spironolactone 25 mg p.o. q.a.m. 3. Hypernatremia: Sodium is 152. We will repeat BMP and if sodium is worsening/or the same, switch to D5W. Otherwise continue D5 1/2NS 4. Hypokalemia: Potassium is 3.4. We will repeat BMP and if still hypokalemic, then we will supplement with oral potassium. 5. Acute kidney injury: creatinine 1.31, baseline 1.1. Continue IV fluids. 6. Leukocytosis. White count is 13.2 on 11/12. We will repeat CBC to evaluate for resolution. 7. 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 We will consider an MRI of the brain, however, the patient does have an AICD, so not sure if this is compatible. 8. Physical deconditioning: Continue with physical therapy evaluation. Job ID: [id number] [facility]
[2019-11-19] MEDS: Dextrose 5% in Water 1,000 ML IV SCH (19:23)
[2019-11-19] MEDS: Atorvastatin Calcium 40 MG TAB PER TUBE SCH (21:29)
[2019-11-19] MEDS: Acetaminophen/Codeine 30-300mg Tablet PO PRN (23:11)
[2019-11-20 04:52] LABS: Anion Gap 11 mmol/L (10-20); BUN (Urea Nitrogen) 21 mg/dL (8.9-20.6); Calc. Creatinine Clearance 124 mL/min (70-130); Calcium 9.4 mg/dL (7.8-10.44); Carbon Dioxide 24 mmol/L (22-29); Chloride 119 mmol/L (98-107); Estimated GFR-MDRD 82; Glucose 110 mg/dL (70-105); Potassium 3.3 mmol/L (3.5-5.1); Sodium 151 mmol/L (136-145)
[2019-11-20] MEDS: hydrALAZINE 25 MG TAB PO SCH ×3 (07:29→21:12)
[2019-11-20] MEDS: Carvedilol 3.125 MG TAB PO SCH (07:29)
[2019-11-20] MEDS: TICAGRELOR 90 MG TABLET PO SCH ×2 (07:30→21:12)
[2019-11-20] MEDS: Lisinopril 5 MG TAB PO SCH (07:30)
[2019-11-20] MEDS: Aspirin 81 mg Enteric Coated Tablet PO SCH (07:30)
[2019-11-20] MEDS: Spironolactone 25 MG TAB PO SCH (07:30)
[2019-11-20] MEDS: Pantoprazole 40 MG VIAL IVP SCH (07:31)
[2019-11-20] MEDS: Dextrose 5% in Water 1,000 ML IV SCH ×3 (07:40→21:13)
[2019-11-20] MEDS: Acetaminophen/Codeine 30-300mg Tablet PO PRN (09:13)
[2019-11-20] MEDS: cloNIDine 0.1 MG TAB PO PRN (09:14)
[2019-11-20] MEDS ORDERED: Lisinopril 5 MG TAB PO SCH ×3 (09:27→10:15)
--- NOTE | 2019-11-20 10:08 | PRG ---
DATE OF SERVICE: 11/20/2019 SUBJECTIVE: Mr. Adhikari is more alert today. He says "he does not like the food." He does not like mechanically soft diet. His family member is at the bedside. The patient is more alert than he has been. OBJECTIVE: VITAL SIGNS: His blood pressure is high 188/101, pulse is 80. LUNGS: Clear. CARDIAC: Normal S1 and S2. ABDOMEN: Soft, nontender. ASSESSMENT: 1. Status post acute myocardial infarction, cardiac arrest. 2. Previous defibrillator. 3. Hypertension. 4. Congestive heart failure systolic, chronic. PLAN: 1. Increase carvedilol and lisinopril. 2. Interrogate the pacemaker defibrillator. 3. Try to increase activity levels. 4. He is on dual antiplatelet drugs. Job ID: [id number]
--- NOTE | 2019-11-20 11:24 | PRG ---
DATE OF SERVICE: 11/20/2019 SUBJECTIVE: This morning, he said he is not short of breath. OBJECTIVE: VITAL SIGNS: Sats room air, pulse 85, blood pressure 182/100. Still weak. His I's and O's have been consistently negative. CHEST: Bilateral crackles. CARDIAC: Normal S1, S2. No gallops. ABDOMEN: No masses. LABORATORY DATA: Sodium is still 151, creatinine is normal. White count 9000. ASSESSMENT: Respiratory failure, morbid obesity, congestive heart failure, mild azotemia. PLAN: Continue PT, supportive care. Job ID: [id number]
--- NOTE | 2019-11-20 11:55 | PDOC.HOSPP ---
- Subjective Encounter Date: 11/20/19 Encounter Time: 07:30 Subjective: F/u: encephalopathy The patient was noted to be slightly confused this morning compared to yesterday. He was asking to see his five kids. He stated that he had five of his kids five days ago. He could not recall their names. Patient states that he is wanting some ice water. He has no other complaints Per nursing staff, family arrived and patient was able to recognize his family - Objective Vital Signs & Weight: Vital Signs (12 hours) Temp Pulse Resp BP Pulse Ox 11/20/19 11:04 98.7 F 76 18 157/89 H 95 11/20/19 09:13 188/101 H 11/20/19 07:31 96 11/20/19 07:30 85 11/20/19 07:29 110 H 16 96 11/20/19 07:28 85 18 179/109 H 96 11/20/19 03:14 97.5 F L 70 20 155/88 H 95 Weight Admit Weight 263 lb Weight 237 lb 1.6 oz Most Recent Monitor Data Heart Rate from ECG 90 NIBP 149/87 NIBP BP-Mean 107 Respiration from ECG 16 SpO2 98 I&O: 11/19/19 11/20/19 11/21/19 06:59 06:59 06:59 Intake Total 911 3290 Output Total 1156 825 Balance -245 2465 Result Diagrams: 11/19/19 18:12 11/20/19 04:05 Hospitalist ROS - Review of Systems Constitutional: denies: fever - Medication Medications: Active Medications Generic Name Dose Route Start Last Admin Trade Name Freq PRN Reason Stop Dose Admin Acetaminophen/Codeine Phosphate 1 tab 11/12/19 11:34 11/20/19 09:13 Tylenol #3 PO 1 tab Q4H PRN Administration Mild Pain (1-3) Albuterol/Ipratropium 3 ml 11/12/19 19:00 11/20/19 07:29 Duoneb NEB 3 ml [id number] PHILLIP Administration Aspirin 81 mg 11/15/19 09:00 11/20/19 07:30 Ecotrin PO 81 mg DAILY PHILLIP Administration Atorvastatin Calcium 40 mg 11/12/19 21:00 11/19/19 21:29 Lipitor PER TUBE 40 mg HS PIHLLIP Administration Clonidine 0.1 mg 11/12/19 11:34 11/20/19 09:14 Catapres PO 0.1 mg Q2H PRN Administration SBP GREATER THAN 160 Hydralazine HCl 25 mg 11/19/19 15:00 11/20/19 07:29 Apresoline PO 25 mg TID PHILLIP Administration Lisinopril 5 mg 11/20/19 10:15 11/20/19 11:02 Zestril PO 11/20/19 12:00 5 mg NOW PHILLIP Administration Metoprolol Tartrate 5 mg 11/17/19 16:48 11/17/19 16:59 Lopressor IVP 5 mg Q6H PRN Administration HR >80 & SBP >140 Pantoprazole Sodium 40 mg 11/13/19 09:00 11/20/19 07:31 Protonix IVP 40 mg DAILY PHILLIP Administration Potassium Chloride 40 meq 11/20/19 12:00 11/20/19 11:01 K-Dur PO 11/20/19 14:00 40 meq NOW PHILLIP Administration Sodium Chloride 10 ml 11/19/19 21:00 11/20/19 07:31 Flush - Normal Saline IVF 10 ml Q12HR PHILLIP Administration Spironolactone 25 mg 11/13/19 08:00 11/20/19 07:30 Aldactone PO 25 mg QAM-WM PHILLIP Administration Ticagrelor 90 mg 11/12/19 21:00 11/20/19 07:30 Brilinta PO 90 mg BID PHILLIP Administration - Exam General Appearance: NAD, awake alert Eye: PERRL, anicteric sclera ENT: normocephalic atraumatic, no oropharyngeal lesions Neck: no JVD Heart: RRR, no murmur, no gallops, no rubs Respiratory: CTAB, no wheezes, no rales, no ronchi Gastrointestinal: soft, non-tender, non-distended, normal bowel sounds, no hepatomegaly Extremities: no cyanosis, no clubbing, no edema Skin: normal turgor, no lesions, no rashes Neurological: cranial nerve grossly intact, normal sensation to touch, no focal deficits, no new deficit Musculoskeletal: normal tone, normal strength, no muscle wasting Psychiatric: normal affect, normal behavior, A&O x 3 Hosp A/P - Plan This is a 44 year old male who presented with STEMI, developed some encephalopathy #Inferior Wall STEMI #Hypertension - on aspirin, statin, brilinta - on hydralazine 25 mg tid - lisinopril increased to 10 mg bid - coreg increased to 12.5 mg bid #Hypernatremia - will increase D5W to 100/hour - speech therapy to re-evaluate for a diet Hypokalemia - potassium 3.3, replace with oral potassium Delirium - noted to have waxing/waning mental status. Will check CT head - treat hypernatremia #ANemia - Hb 12.6, likely dilutional will monitor Disposition: pending placement
[2019-11-20] MEDS ORDERED: Potassium Chloride 20 MEQ TAB PO SCH (12:00)
--- NOTE | 2019-11-20 12:54 | CT ---
CT Brain WO Con: 11/20/2019 11:55 AM CLINICAL HISTORY: Encephalopathy. IMAGING TECHNIQUE: Multiple CT images were obtained of the brain without IV contrast. COMPARISON: None. FINDINGS: BRAIN: Evidence of acute infarct: None. Evidence of chronic ischemic change:None. Evidence of intracranial hemorrhage: None. Evidence of midline shift: Third ventricle and septum pellucidum are midline. Ventricles: Normal. No hydrocephalus. SKULL: Intact. VISUALIZED PARANASAL SINUSES: Clear. MASTOID AIR CELLS: Clear. EXTRACRANIAL SOFT TISSUES: Normal. IMPRESSION: No acute intracranial abnormality.
[2019-11-20] MEDS: Carvedilol 6.25 MG TAB PO SCH (16:41)
[2019-11-20] MEDS ORDERED: Carvedilol 3.125 MG TAB PO SCH (17:00)
[2019-11-20 18:32] LABS: Anion Gap 13 mmol/L (10-20); BUN (Urea Nitrogen) 16 mg/dL (8.9-20.6); Calc. Creatinine Clearance 128 mL/min (70-130); Calcium 9.3 mg/dL (7.8-10.44); Carbon Dioxide 19 mmol/L (22-29); Chloride 118 mmol/L (98-107); Estimated GFR-MDRD 87; Glucose 117 mg/dL (70-105); Potassium 3.2 mmol/L (3.5-5.1); Sodium 147 mmol/L (136-145)
[2019-11-20] MEDS: Lisinopril 10 MG TAB PO SCH (21:11)
[2019-11-20] MEDS: Atorvastatin Calcium 40 MG TAB PER TUBE SCH (21:12)
[2019-11-21] MEDS ORDERED: Potassium Chloride 20 MEQ TAB PO SCH ×2 (01:00→13:00)
[2019-11-21 05:15] LABS: Anion Gap 12 mmol/L (10-20); BUN (Urea Nitrogen) 13 mg/dL (8.9-20.6); Calc. Creatinine Clearance 149 mL/min (70-130); Carbon Dioxide 19 mmol/L (22-29); Chloride 111 mmol/L (98-107); Estimated GFR-MDRD Greater than 90; Glucose 101 mg/dL (70-105); Potassium 3.2 mmol/L (3.5-5.1); Sodium 139 mmol/L (136-145)
[2019-11-21] MEDS: Dextrose 5% in Water 1,000 ML IV SCH ×2 (07:10→19:29)
--- NOTE | 2019-11-21 10:04 | PRG ---
DATE OF SERVICE: 11/21/2019 SUBJECTIVE: A 44-year-old gentleman, remains encephalopathic, status post respiratory failure, CHF. OBJECTIVE: VITAL SIGNS: Temperature 97, pulse 61, sats 100% on room air, respiratory rate 16, blood pressure 158/86. CHEST: No wheezing or crackles. CARDIAC: Normal S1, S2. No gallops. ABDOMEN: No masses. ASSESSMENT AND PLAN: Congestive heart failure, encephalopathy, respiratory failure. Low-dose risperidone is initiated. Continue supportive care. Job ID: [id number]
--- NOTE | 2019-11-21 10:34 | PRG ---
DATE OF SERVICE: 11/21/2019 SUBJECTIVE: Mr. Adhikari is more alert and awake. He is only eating a very small amount, however. No chest pain or pressure. OBJECTIVE: VITAL SIGNS: His blood pressure 154/86, pulse 60. LUNGS: Clear. CARDIAC: Normal S1. Normal S2. ABDOMEN: Obese and nontender. EXTREMITIES: Warm and dry. PERTINENT LABORATORY DATA: His sodium is down to 139. ASSESSMENT: 1. Congestive heart failure, systolic, compensated. 2. Hypertension. Increase carvedilol. Continue hydralazine. 3. Hypernatremia, resolved. PLAN: 1. Hep-Lock IV. 2. He is ready for placement. His renal functions also back to normal. 3. Give him an extra dose of potassium. Job ID: [id number]
[2019-11-21] MEDS: Spironolactone 25 MG TAB PO SCH (11:02)
[2019-11-21] MEDS: hydrALAZINE 25 MG TAB PO SCH ×3 (11:02→19:53)
[2019-11-21] MEDS: Aspirin 81 mg Enteric Coated Tablet PO SCH (11:02)
[2019-11-21] MEDS: TICAGRELOR 90 MG TABLET PO SCH ×2 (11:03→19:53)
[2019-11-21] MEDS: Lisinopril 10 MG TAB PO SCH ×2 (11:03→19:53)
[2019-11-21] MEDS: Pantoprazole 40 MG VIAL IVP SCH (11:04)
[2019-11-21] MEDS: Carvedilol 6.25 MG TAB PO SCH ×2 (11:06→18:18)
[2019-11-21] MEDS: Acetaminophen/Codeine 30-300mg Tablet PO PRN (11:10)
--- NOTE | 2019-11-21 17:26 | PDOC.HOSPP ---
- Subjective Encounter Date: 11/21/19 Encounter Time: 09:00 Subjective: The patient has no complaints. He is having hallucinations about his mother being right in front of him. Patient noted to have some visual impairment He did have a BP of 185/111 this afternoon. Coreg was increased - Objective Vital Signs & Weight: Vital Signs (12 hours) Temp Pulse Pulse Pulse Pulse Resp BP 11/21/19 16:47 99.3 F 65 11/21/19 14:36 60 156/101 H 11/21/19 13:49 70 64 11/21/19 13:30 60 18 11/21/19 12:40 74 59 L 68 11/21/19 12:00 98.0 F 76 18 11/21/19 11:35 98.0 F 76 11/21/19 11:06 154/86 H 11/21/19 11:03 138/91 H 11/21/19 11:02 61 154/86 H 11/21/19 08:03 61 16 11/21/19 08:00 97.7 F 62 18 11/21/19 05:58 98.0 F 70 18 BP BP BP BP Pulse Ox 11/21/19 16:47 136/90 97 11/21/19 14:36 11/21/19 13:49 138/94 H 144/95 H 11/21/19 13:30 100 11/21/19 12:40 155/82 H 181/111 H 140/91 H 11/21/19 12:00 156/101 H 11/21/19 11:35 156/101 H 97 11/21/19 11:06 11/21/19 11:03 11/21/19 11:02 11/21/19 08:03 100 11/21/19 08:00 154/86 H 96 11/21/19 05:58 154/97 H 97 Weight Admit Weight 263 lb 7.238 oz Weight 237 lb 2.702 oz Most Recent Monitor Data Heart Rate from ECG 90 NIBP 149/87 NIBP BP-Mean 107 Respiration from ECG 16 SpO2 98 I&O: 11/20/19 11/21/19 11/22/19 06:59 06:59 06:59 Intake Total 3290 2560 Output Total 825 700 Balance 2465 1860 Result Diagrams: 11/19/19 18:12 11/21/19 04:33 Hospitalist ROS - Medication Medications: Active Medications Generic Name Dose Route Start Last Admin Trade Name Freq PRN Reason Stop Dose Admin Acetaminophen/Codeine Phosphate 1 tab 11/12/19 11:34 11/21/19 11:10 Tylenol #3 PO 1 tab Q4H PRN Administration Mild Pain (1-3) Albuterol/Ipratropium 3 ml 11/12/19 19:00 11/21/19 13:30 Duoneb NEB 3 ml [id number] PHILLIP Administration Aspirin 81 mg 11/15/19 09:00 11/21/19 11:02 Ecotrin PO 81 mg DAILY PHILLIP Administration Atorvastatin Calcium 40 mg 11/12/19 21:00 11/20/19 21:12 Lipitor PER TUBE 40 mg HS PHILLIP Administration Clonidine 0.1 mg 11/12/19 11:34 11/20/19 09:14 Catapres PO 0.1 mg Q2H PRN Administration SBP GREATER THAN 160 Hydralazine HCl 25 mg 11/19/19 15:00 11/21/19 14:36 Apresoline PO 25 mg TID PHILLIP Administration Lisinopril 10 mg 11/20/19 21:00 11/21/19 11:03 Zestril PO 10 mg BID PHILLIP Administration Metoprolol Tartrate 5 mg 11/17/19 16:48 11/17/19 16:59 Lopressor IVP 5 mg Q6H PRN Administration HR >80 & SBP >140 Pantoprazole Sodium 40 mg 11/13/19 09:00 11/21/19 11:04 Protonix IVP 40 mg DAILY PHILLIP Administration Sodium Chloride 10 ml 11/19/19 21:00 11/21/19 11:07 Flush - Normal Saline IVF 10 ml Q12HR PHILLIP Administration Spironolactone 25 mg 11/13/19 08:00 11/21/19 11:02 Aldactone PO 25 mg QAM-WM PHILLIP Administration Ticagrelor 90 mg 11/12/19 21:00 11/21/19 11:03 Brilinta PO 90 mg BID PHILLIP Administration - Exam General Appearance: NAD, awake alert Eye: PERRL, anicteric sclera Eye - other findings: difficulty tracking to the right side. Occ diplopia. Vis acuity dec R+ L ENT: normocephalic atraumatic, no oropharyngeal lesions Neck: supple, symmetric, no JVD Heart: RRR, no murmur, no gallops, no rubs Respiratory: CTAB, no wheezes, no rales, no ronchi Gastrointestinal: soft, non-tender, non-distended, normal bowel sounds Extremities: no cyanosis, no clubbing, no edema Skin: normal turgor, no lesions, no rashes Neurological: cranial nerve grossly intact, normal sensation to touch, no focal deficits, no new deficit Hosp A/P - Plan CT head: normal This is a 44 year old male who presented with STEMI, developed some encephalopathy #Inferior Wall STEMI #Hypertension - on aspirin, statin, brilinta - on hydralazine 25 mg tid, lisinopril 10 mg bid. Coreg increased to 25 mg bid today #Visual impairment - noted to have difficulty tracking to right side. This am guessed correct number of fingers with both eyes open, but individual eye testing patient did not correctly guess number of fingers - CT head show no stroke, but suspect he may have had one - unable to do MRI nitza of ICD #Hypernatremia - resolved Hypokalemia - potassium 3.3, replace with oral potassium Delirium - noted to have waxing/waning mental status. Will check CT head - treat hypernatremia #ANemia - Hb 12.6, likely dilutional will monitor Disposition: pending placement
[2019-11-21] MEDS: Atorvastatin Calcium 40 MG TAB PER TUBE SCH (19:52)
[2019-11-22 04:26] LABS: Hemoglobin 13.7 g/dL (14.0-18.0); Mean Corpuscular HGB CONC 34.5 g/dL (32.0-36.0); Mean Corpuscular Hemoglobin 27.8 pg (27.0-31.0); Mean Corpuscular Volume 80.6 fL (78.0-98.0); Mean Platelet Volume 8.2 fL (7.4-10.4); Platelet Count 326 thou/uL (130-400); RBC Distribution Width 14.3 % (11.5-14.5); Red Blood Cell (RBC) Count 4.92 mill/uL (4.70-6.10); White Blood Cell (WBC) Count 12.3 thou/uL (4.8-10.8)
[2019-11-22 04:51] LABS: Anion Gap 13 mmol/L (10-20); BUN (Urea Nitrogen) 14 mg/dL (8.9-20.6); Calc. Creatinine Clearance 141 mL/min (70-130); Carbon Dioxide 19 mmol/L (22-29); Chloride 112 mmol/L (98-107); Estimated GFR-MDRD Greater than 90; Glucose 95 mg/dL (70-105); Potassium 3.7 mmol/L (3.5-5.1); Sodium 140 mmol/L (136-145)
[2019-11-22] MEDS ORDERED: Potassium Chloride 20 MEQ TAB PO SCH (08:00)
[2019-11-22] MEDS: Spironolactone 25 MG TAB PO SCH (08:41)
[2019-11-22] MEDS: Aspirin 81 mg Enteric Coated Tablet PO SCH (08:42)
[2019-11-22] MEDS: hydrALAZINE 25 MG TAB PO SCH ×3 (08:42→21:00)
[2019-11-22] MEDS: Lisinopril 10 MG TAB PO SCH ×2 (08:42→20:59)
[2019-11-22] MEDS: Carvedilol 6.25 MG TAB PO SCH ×2 (08:43→16:59)
[2019-11-22] MEDS: TICAGRELOR 90 MG TABLET PO SCH ×2 (08:43→20:58)
[2019-11-22] MEDS: risperiDONE 0.25 MG TAB PO SCH (08:43)
[2019-11-22] MEDS: Loratadine 10 MG TAB PO SCH (08:43)
--- NOTE | 2019-11-22 09:18 | PRG ---
DATE OF SERVICE: 11/22/2019 SUBJECTIVE: Mr. Adhikari sitting up in the chair. He is getting ready to get a shower. He is awake and alert. OBJECTIVE: VITAL SIGNS: Blood pressure is high at 154/104, pulse 78 and regular. LUNGS: Clear. CARDIAC: Normal S1, normal S2. ABDOMEN: Soft, nontender. EXTREMITIES: No edema. ASSESSMENT: 1. Status post myocardial infarction and cardiac arrest. 2. Previous defibrillator. 3. Hypertension. PLAN: 1. Increase hydralazine to 50 mg three times a day. 2. Continue carvedilol. 3. Increase lisinopril. 4. Replete potassium . 5. Aspirin and ticagrelor. 6. Could be transferred to a different facility whenever feasible if the patient is clinically stable. Job ID: [id number]
--- NOTE | 2019-11-22 12:54 | PRG ---
DATE OF SERVICE: SUBJECTIVE: Ryne Adhikari, this morning, appears to be somewhat less agitated. OBJECTIVE: VITAL SIGNS: His temperature is 99, pulse 78, saturation 87% on room air, blood pressure . CHEST: Decreased breath sounds. No wheezing. CARDIAC: Normal S1, S2. No gallop. ABDOMEN: No masses. ASSESSMENT: 1. Status post respiratory failure, congestive heart failure. 2. Encephalopathy. 3. Severe deconditioning. PLAN: Eventually placement. PT, supportive care. Pulmonary follow at a distance. Call if needed. Job ID: [id number]
[2019-11-22 13:54] VITALS: BMI 32.6
[2019-11-22] MEDS: Acetaminophen/Codeine 30-300mg Tablet PO PRN (15:06)
--- NOTE | 2019-11-22 18:40 | PDOC.HOSPP ---
- Subjective Encounter Date: 11/22/19 Encounter Time: 09:45 Subjective: The patient has no complaints. No headaches. Visited with the patient's cousin in law this morning. Patient recognized his cousin in law but was unable to see him. When I sat the patient up, he could tell that his cousin was wearing a blue shirt. The patient states that he was unable to see how many fingers I was holding up today, although he was yesterday. He states "I can't see anything. " - Objective Vital Signs & Weight: Vital Signs (12 hours) Temp Pulse Pulse Resp BP BP Pulse Ox 11/22/19 15:05 98.9 F 71 18 132/86 99 11/22/19 14:30 81 137/86 11/22/19 12:55 68 16 11/22/19 11:28 98.8 F 68 20 144/89 H 96 11/22/19 10:37 63 131/74 11/22/19 08:39 99.3 F 78 18 154/104 H 100 11/22/19 07:15 56 L 18 Weight Admit Weight 263 lb 7.238 oz Weight 241 lb Most Recent Monitor Data Heart Rate from ECG 90 NIBP 149/87 NIBP BP-Mean 107 Respiration from ECG 16 SpO2 98 I&O: 11/21/19 11/22/19 11/23/19 06:59 06:59 06:59 Intake Total 2560 870 960 Output Total 700 600 450 Balance 1860 270 510 Result Diagrams: 11/22/19 04:10 11/22/19 04:10 Hospitalist ROS - Review of Systems Constitutional: denies: fever, chills - Medication Medications: Active Medications Generic Name Dose Route Start Last Admin Trade Name Freq PRN Reason Stop Dose Admin Acetaminophen/Codeine Phosphate 1 tab 11/22/19 12:13 11/22/19 15:06 Tylenol #3 PO 11/24/19 12:14 1 tab Q4H PRN Administration Mild Pain (1-3) Albuterol/Ipratropium 3 ml 11/12/19 19:00 11/22/19 12:55 Duoneb NEB 3 ml [id number] PHILLIP Administration Aspirin 81 mg 11/15/19 09:00 11/22/19 08:42 Ecotrin PO 81 mg DAILY PHILLIP Administration Atorvastatin Calcium 40 mg 11/12/19 21:00 11/21/19 19:52 Lipitor PER TUBE 40 mg HS PHILLIP Administration Carvedilol 25 mg 11/21/19 17:00 11/22/19 16:59 Coreg PO 25 mg BID-WM PHILLIP Administration Clonidine 0.1 mg 11/12/19 11:34 11/20/19 09:14 Catapres PO 0.1 mg Q2H PRN Administration SBP GREATER THAN 160 Hydralazine HCl 50 mg 11/22/19 09:00 11/22/19 15:06 Apresoline PO 50 mg TID PHILLIP Administration Lisinopril 10 mg 11/20/19 21:00 11/22/19 08:42 Zestril PO 10 mg BID PHILLIP Administration Loratadine 10 mg 11/22/19 09:00 11/22/19 08:43 Claritin PO 10 mg DAILY PHILLIP Administration Pantoprazole Sodium 40 mg 11/22/19 09:00 11/22/19 08:43 Protonix PO 40 mg DAILY PHILLIP Administration Risperidone 0.25 mg 11/22/19 09:00 11/22/19 08:43 Risperidone PO 0.25 mg DAILY PHILLIP Administration Sodium Chloride 10 ml 11/19/19 21:00 11/22/19 08:41 Flush - Normal Saline IVF 10 ml Q12HR PHILLIP Administration Spironolactone 25 mg 11/13/19 08:00 11/22/19 08:41 Aldactone PO 25 mg QAM-WM PHILLIP Administration Ticagrelor 90 mg 11/12/19 21:00 11/22/19 08:43 Brilinta PO 90 mg BID PHILLIP Administration - Exam General Appearance: NAD, awake alert Eye - other findings: pupils dilated, minimally reactive to light. Impaired visual acuity ENT: normocephalic atraumatic, no oropharyngeal lesions Neck: no JVD Heart: RRR, no murmur, no gallops, no rubs Respiratory: CTAB, no wheezes, no rales, no ronchi Gastrointestinal: soft, non-tender, non-distended, normal bowel sounds, no hepatomegaly Extremities: no cyanosis, no clubbing, no edema Skin: normal turgor, no lesions, no rashes Hosp A/P - Plan CT head: normal This is a 44 year old male who presented with STEMI, developed some encephalopathy #Inferior Wall STEMI #Hypertension - on aspirin, statin, brilinta - on lisinopril 10 mg bid, coreg 25 mg bid. Hydralazine increased to 50 mg tid 11/21 #Visual impairment' - seems to have worsened today since patient was unable to see any of my fingers . Opthalmology was consulted, Dr. Mayo plans to re-evaluate patient tomorrow but suspecting stroke - CT head shows no stroke, cannot do MRI nitza of ICD #MIld cognitive impairment/Anoxic encephalopathy - patient intermittently has hallucinations, but when normal answers questions appropriately - needs care home placement, case management is consulted and working on it - sister states she may be able to take care of him if care home is not an option #Leukocytosis - Wbc 12, will monitor, UA negative on admission Hypokalemia - resolved #ANemia -stable Disposition: pending placement
[2019-11-22] MEDS: Atorvastatin Calcium 40 MG TAB PER TUBE SCH (20:58)
[2019-11-23 04:59] LABS: Anion Gap 14 mmol/L (10-20); BUN (Urea Nitrogen) 19 mg/dL (8.9-20.6); Calc. Creatinine Clearance 148 mL/min (70-130); Calcium 9.3 mg/dL (7.8-10.44); Carbon Dioxide 19 mmol/L (22-29); Chloride 111 mmol/L (98-107); Estimated GFR-MDRD Greater than 90; Glucose 96 mg/dL (70-105); Potassium 3.7 mmol/L (3.5-5.1); Sodium 140 mmol/L (136-145)
[2019-11-23] MEDS: Carvedilol 6.25 MG TAB PO SCH ×2 (08:24→16:11)
[2019-11-23] MEDS: Aspirin 81 mg Enteric Coated Tablet PO SCH (08:24)
[2019-11-23] MEDS: Loratadine 10 MG TAB PO SCH (08:24)
[2019-11-23] MEDS: hydrALAZINE 25 MG TAB PO SCH ×3 (08:25→20:47)
[2019-11-23] MEDS: Spironolactone 25 MG TAB PO SCH (08:25)
[2019-11-23] MEDS: TICAGRELOR 90 MG TABLET PO SCH ×2 (08:25→20:47)
[2019-11-23] MEDS: Lisinopril 10 MG TAB PO SCH ×2 (08:25→20:47)
[2019-11-23] MEDS: risperiDONE 0.25 MG TAB PO SCH (08:25)
[2019-11-23] MEDS: Acetaminophen/Codeine 30-300mg Tablet PO PRN ×2 (09:45→23:42)
--- NOTE | 2019-11-23 14:18 | PDOC.HOSPP ---
- Subjective Encounter Date: 11/23/19 (f/u STEMI) Encounter Time: 14:16 Subjective: Pt is on HD11 - admitted post-resp and cardiac arrest, s/p stent for STEMI, has experienced vision change/loss with anoxic encephalopathy. Pt with known cardiomyopathy and AICD in place. Pt today denies any pain. when asked about vision - states he sees some flashing lights. Able to tell me that a doctor placed drops in his eyes today. Unable to discern colors. Denies dyspnea, n/v/abd pain. - Objective Vital Signs & Weight: Vital Signs (12 hours) Temp Pulse Resp BP Pulse Ox 11/23/19 11:50 97.7 F 72 118/54 L 90 L 11/23/19 07:25 98.4 F 70 20 128/85 97 11/23/19 07:10 62 15 11/23/19 04:44 98.2 F 63 18 132/81 97 Weight Admit Weight 263 lb 7.238 oz Weight 244 lb 6.4 oz Most Recent Monitor Data Heart Rate from ECG 90 NIBP 149/87 NIBP BP-Mean 107 Respiration from ECG 16 SpO2 98 I&O: 11/22/19 11/23/19 11/24/19 06:59 06:59 06:59 Intake Total 870 1080 Output Total 600 450 Balance 270 630 Result Diagrams: 11/22/19 04:10 11/23/19 04:23 EKG Reviewed by me: Yes (tele - sinus 70's , at 22:20 last night had 6 beats of VT) Hospitalist ROS - Medication Medications: Active Medications Generic Name Dose Route Start Last Admin Trade Name Freq PRN Reason Stop Dose Admin Acetaminophen/Codeine Phosphate 1 tab 11/22/19 12:13 11/23/19 09:45 Tylenol #3 PO 11/24/19 12:14 1 tab Q4H PRN Administration Mild Pain (1-3) Albuterol/Ipratropium 3 ml 11/12/19 19:00 11/23/19 07:10 Duoneb NEB 3 ml [id number] PHILLIP Administration Aspirin 81 mg 11/15/19 09:00 11/23/19 08:24 Ecotrin PO 81 mg DAILY PHILLIP Administration Atorvastatin Calcium 40 mg 11/12/19 21:00 11/22/19 20:58 Lipitor PER TUBE 40 mg HS PHILLIP Administration Carvedilol 25 mg 11/21/19 17:00 11/23/19 08:24 Coreg PO 25 mg BID-WM PHILLIP Administration Clonidine 0.1 mg 11/12/19 11:34 11/20/19 09:14 Catapres PO 0.1 mg Q2H PRN Administration SBP GREATER THAN 160 Hydralazine HCl 50 mg 11/22/19 09:00 11/23/19 08:25 Apresoline PO 50 mg TID PHILLIP Administration Lisinopril 10 mg 11/20/19 21:00 11/23/19 08:25 Zestril PO 10 mg BID PHILLIP Administration Loratadine 10 mg 11/22/19 09:00 11/23/19 08:24 Claritin PO 10 mg DAILY PHILLIP Administration Pantoprazole Sodium 40 mg 11/22/19 09:00 11/23/19 08:25 Protonix PO 40 mg DAILY PHILLIP Administration Risperidone 0.25 mg 11/22/19 09:00 11/23/19 08:25 Risperidone PO 0.25 mg DAILY PHILLIP Administration Sodium Chloride 10 ml 11/19/19 21:00 11/23/19 08:25 Flush - Normal Saline IVF 10 ml Q12HR PHILLIP Administration Spironolactone 25 mg 11/13/19 08:00 11/23/19 08:25 Aldactone PO 25 mg QAM-WM PHILLIP Administration Ticagrelor 90 mg 11/12/19 21:00 11/23/19 08:25 Brilinta PO 90 mg BID PHILLIP Administration - Exam General Appearance: NAD Heart: RRR, no murmur Respiratory: CTAB, no wheezes, no rales, no ronchi Gastrointestinal: soft, non-tender, non-distended, normal bowel sounds Extremities: no cyanosis, no clubbing, no edema Hosp A/P (1) STEMI (ST elevation myocardial infarction) Status: Acute Qualifiers: Involved coronary artery: left circumflex coronary artery Qualified Code(s) : I21.21 - ST elevation (STEMI) myocardial infarction involving left circumflex coronary artery (2) Acute anoxic encephalopathy Code(s): G93.1 - ANOXIC BRAIN DAMAGE, NOT ELSEWHERE CLASSIFIED Status: Acute (3) Vision impairment Code(s): H54.7 - UNSPECIFIED VISUAL LOSS Status: Acute (4) Cardiomyopathy Code(s): I42.9 - CARDIOMYOPATHY, UNSPECIFIED Status: Chronic Qualifiers: Cardiomyopathy type: unspecified Qualified Code(s): I42.9 - Cardiomyopathy , unspecified (5) Acute respiratory failure with hypoxia and hypercapnia Code(s): J96.01 - ACUTE RESPIRATORY FAILURE WITH HYPOXIA; J96.02 - ACUTE RESPIRATORY FAILURE WITH HYPERCAPNIA Status: Resolved (6) CAD (coronary artery disease) Code(s): I25.10 - ATHSCL HEART DISEASE OF [place] CORONARY ARTERY W/O ANG PCTRS Status: Chronic (7) Dyslipidemia Code(s): E78.5 - HYPERLIPIDEMIA, UNSPECIFIED Status: Chronic (8) HTN (hypertension) Code(s): I10 - ESSENTIAL (PRIMARY) HYPERTENSION Status: Chronic - Plan Appreciate multiple consultants: - Cardiology - medications optimized, pt is s/p stent placement for STEMI s/p cardiac and resp arrest Ophthalmology - evaluated by Dr. Deal today - normal fundus on dilated eye exam. attribute vision changes to anoxic brain injury. Pt is not a candidate for MRI due to AICD. HTN - well controlled Encephalopathy secondary to anoxic injury - continue neuro checks, pt/ot dvt prophy - scd's gi prophy - not indictaed code status full awaiting placement for rehabilitation pt remains at high risk in current condition
--- NOTE | 2019-11-23 16:00 | PDOC.CPN ---
- Subjective Date: 11/23/19 Time: 15:59 Interval history: Doing well. Breathing at baseline. No angina. - Review of Systems General: denies: fever/chills, weight/appetite/sleep changes, night sweats, fatigue Respiratory: denies: cough, congestion, shortness of breath, exercise intolerance Cardiovascular: denies: chest pain, palpitation, edema, paroxysmal nocturnal dyspnea, orthopnea Gastrointestinal: denies: nausea, vomiting, diarrhea, constipation, abd pain, GI bleeding Musculoskeletal: denies: pain, tenderness, stiffness, swelling, arthritis/ arthralgias Neurological: denies: numbness, syncope, seizure, weakness - Objective Allergies/Adverse Reactions: Allergies Allergy/AdvReac Type Severity Reaction Status Date / Time No Known Allergies Allergy Verified 08/18/19 07:42 Visit Medications: Current Medications Acetaminophen/Codeine Phosphate (Tylenol #3) 1 tab PO Q4H PRN PRN Reason: Mild Pain (1-3) Stop: 11/24/19 12:14 Last Admin: 11/23/19 09:45 Dose: 1 tab Albuterol/Ipratropium (Duoneb) 3 ml NEB [id number] [facility] Last Admin: 11/23/19 15:00 Dose: 3 ml Aspirin (Ecotrin) 81 mg PO DAILY [facility] Last Admin: 11/23/19 08:24 Dose: 81 mg Atorvastatin Calcium (Lipitor) 40 mg PER TUBE HS [facility] Last Admin: 11/22/19 20:58 Dose: 40 mg Carvedilol (Coreg) 25 mg PO BID-WM [facility] Last Admin: 11/23/19 08:24 Dose: 25 mg Clonidine (Catapres) 0.1 mg PO Q2H PRN PRN Reason: SBP GREATER THAN 160 Last Admin: 11/20/19 09:14 Dose: 0.1 mg Hydralazine HCl (Apresoline) 50 mg PO TID [facility] Last Admin: 11/23/19 15:22 Dose: 50 mg Lisinopril (Zestril) 10 mg PO BID [facility] Last Admin: 11/23/19 08:25 Dose: 10 mg Loratadine (Claritin) 10 mg PO DAILY [facility] Last Admin: 11/23/19 08:24 Dose: 10 mg Magnesium Hydroxide (Milk Of Magnesium) 30 ml PO Q12H PRN PRN Reason: Constipation Nitroglycerin (Nitrostat) 0.4 mg SL Q5MIN PRN PRN Reason: Chest Pain Pantoprazole Sodium (Protonix) 40 mg PO DAILY [facility] Last Admin: 11/23/19 08:25 Dose: 40 mg Risperidone (Risperidone) 0.25 mg PO DAILY [facility] Last Admin: 11/23/19 08:25 Dose: 0.25 mg Sodium Chloride (Flush - Normal Saline) 10 ml IVF Q12HR [facility] Last Admin: 11/23/19 08:25 Dose: 10 ml Sodium Chloride (Flush - Normal Saline) 10 ml IVF PRN PRN PRN Reason: Saline Flush Spironolactone (Aldactone) 25 mg PO QAM-WM [facility] Last Admin: 11/23/19 08:25 Dose: 25 mg Ticagrelor (Brilinta) 90 mg PO BID [facility] Last Admin: 11/23/19 08:25 Dose: 90 mg Vital Signs & Weight: Vital Signs Temp Pulse Resp BP Pulse Ox 11/23/19 15:20 98.6 F 64 18 130/69 97 11/23/19 15:00 78 16 11/23/19 11:50 97.7 F 72 118/54 L 90 L 11/23/19 07:25 98.4 F 70 20 128/85 97 11/23/19 07:10 62 15 11/23/19 04:44 98.2 F 63 18 132/81 97 Admit Weight 263 lb 7.238 oz Weight 244 lb 6.4 oz - Physical Exam General: alert & oriented x3 HEENT: mucus membranes moist Neck: supple neck Cardiac: regular rate and rhythm Lungs: clear to auscultation Neuro: grossly intact Abdomen: active bowel sounds Extremities: no edema Skin: clear - Labs Result Diagrams: 11/22/19 04:10 11/23/19 04:23 Troponin/CKMB CK-MB (CK-2) 3.9 ng/mL (0-6.6) 11/12/19 08:54 Troponin I 75.953 ng/mL (< 0.028) H* 11/12/19 18:17 - Telemetry Sinus rhythms and dysrhythmias: sinus rhythm - Assessment/Plan Assessment/Plan: 1. Acute inferior STEMI 2. s/p stenting to distal LCx. 3. S/P Cardiac arrest. 4. Hx of non ischemic CM 5. AICD in place 6. JERMAIN on CKD, improved. 7. Severe LV dysfunction EF at 20-25% PLAN: - CV stable. - Placement . - Continue current meds.
--- NOTE | 2019-11-23 19:59 | CON ---
DATE OF CONSULTATION: 11/23/2019 TIME: 1400 hours. REASON FOR CONSULTATION: Poor vision. HISTORY OF PRESENT ILLNESS: The patient states that he had 20/20 vision of each eye prior to the current illness. On November 12, 2019, the patient developed shortness of breath, and called 911. EMS arrived and shortly thereafter he developed respiratory and then cardiac arrest and he had approximately 4 minutes of CPR. He was taken to the emergency room, then to the cardiac carpenter/labor where he had angioplasty and stent placement. Since that time, he has been somewhat mentally and visually impaired , with hallucinations. He describes family members being present, when they are not, and has variably recordable vision of counting fingers only. CT exam of brain was done on November 19, eight days after his arrest, and is reported as normal. PHYSICAL EXAMINATION: On examination, he has questionable and inconsistent light perception. Placing a penlight over his upper lid and turning it on and off asking him to report when it was on and it was off, resulted in his somewhat rhythmically saying on then off , then on, then off. Initially, this was consistent with my turning the light on and off, but then when the light was either left on for a prolonged period of time or left off for a prolonged period of time, he continued in this same rhythmic pattern. Attempted confrontation visual field was again inconsistent, producing no repeatable information. Zaid-Pen intra-ocular pressure was 12 and 14 mmHg in right eye and 9 and 11 mmHg in left eye. The pupils are somewhat small, but reactive to light, without afferent pupillary defect. His motility is aligned and full. His pupils were dilated with Arsenio-Synephrine and Mydriacyl drops. Anterior segment exam showed clear corneas and clear lenses with a clear view of the fundus. On fundus examination, with a 20 diopter indirect ophthalmoscope, the retinas were flat without any areas of edema or hemorrhage. The vessels were all patent and the macular structures appeared completely normal. Optic nerve showed a cup-to-disk ratio of 0.3 or 0.4 with normal rim color. In summary, fundus exam is completely normal. 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 However, there should have been time to develop changes that would be detectable by CT. The eyeballs themselves and their circulation appeared to be completely normal. He simply would need some long-term followup after discharge. Job ID: [id number] MTDD
[2019-11-23] MEDS: Atorvastatin Calcium 40 MG TAB PER TUBE SCH (20:47)
[2019-11-24 04:50] LABS: #Eosinphils 0.2 thou/uL (0.0-0.7); #Lymphocytes 1.8 thou/uL (1.20-3.40); #Monocytes 0.5 thou/uL (0.11-0.59); #Neutrophils 7.1 thou/uL (1.40-6.50); %Basophils 0.1 % (0.0-1.0); %Lymphocytes 19.1 % (21.0-51.0); %Monocytes 5.3 % (0.0-10.0); %Neutrophils 73.6 % (42.0-75.0); Hemoglobin 12.6 g/dL (14.0-18.0); Mean Corpuscular HGB CONC 35.2 g/dL (32.0-36.0); Mean Corpuscular Hemoglobin 28.7 pg (27.0-31.0); Mean Corpuscular Volume 81.5 fL (78.0-98.0); Mean Platelet Volume 8.4 fL (7.4-10.4); Platelet Count 314 thou/uL (130-400); RBC Distribution Width 14.3 % (11.5-14.5); Red Blood Cell (RBC) Count 4.39 mill/uL (4.70-6.10); White Blood Cell (WBC) Count 9.6 thou/uL (4.8-10.8)
[2019-11-24 05:15] LABS: Anion Gap 11 mmol/L (10-20); BUN (Urea Nitrogen) 19 mg/dL (8.9-20.6); Calc. Creatinine Clearance 133 mL/min (70-130); Calcium 8.7 mg/dL (7.8-10.44); Carbon Dioxide 25 mmol/L (22-29); Chloride 108 mmol/L (98-107); Estimated GFR-MDRD 88; Glucose 99 mg/dL (70-105); Potassium 3.7 mmol/L (3.5-5.1); Sodium 140 mmol/L (136-145)
[2019-11-24] MEDS: Lisinopril 10 MG TAB PO SCH ×2 (08:10→20:17)
[2019-11-24] MEDS: Aspirin 81 mg Enteric Coated Tablet PO SCH (08:10)
[2019-11-24] MEDS: risperiDONE 0.25 MG TAB PO SCH (08:11)
[2019-11-24] MEDS: Carvedilol 6.25 MG TAB PO SCH ×2 (08:11→16:35)
[2019-11-24] MEDS: TICAGRELOR 90 MG TABLET PO SCH ×2 (08:11→20:18)
[2019-11-24] MEDS: hydrALAZINE 25 MG TAB PO SCH ×3 (08:11→20:17)
[2019-11-24] MEDS: Loratadine 10 MG TAB PO SCH (08:11)
[2019-11-24] MEDS: Spironolactone 25 MG TAB PO SCH (08:11)
--- NOTE | 2019-11-24 09:37 | PDOC.HOSPP ---
- Subjective Encounter Date: 11/24/19 (f/u vision loss) Encounter Time: 09:33 Subjective: Pt reports improvement in vision today - able to watch movies. Denies any new sx - n/v/abd pain/cp/dyspnea - Objective Vital Signs & Weight: Vital Signs (12 hours) Temp Pulse Resp BP Pulse Ox 11/24/19 07:05 98.2 F 67 18 142/86 H 97 11/24/19 03:19 98.0 F 62 20 136/78 97 11/24/19 00:00 83 11/23/19 23:13 62 16 100 Weight Admit Weight 263 lb 7.238 oz Weight 243 lb 11.2 oz Most Recent Monitor Data Heart Rate from ECG 90 NIBP 149/87 NIBP BP-Mean 107 Respiration from ECG 16 SpO2 98 I&O: 11/23/19 11/24/19 11/25/19 06:59 06:59 06:59 Intake Total 1080 1320 Output Total 450 425 Balance 630 895 Result Diagrams: 11/24/19 04:00 11/24/19 04:00 EKG Reviewed by me: Yes (tele - sinus 60-70's with PVC's, 10-12 sec bigeminy today) Hospitalist ROS - Medication Medications: Active Medications Generic Name Dose Route Start Last Admin Trade Name Freq PRN Reason Stop Dose Admin Acetaminophen/Codeine Phosphate 1 tab 11/22/19 12:13 11/23/19 23:42 Tylenol #3 PO 11/24/19 12:14 1 tab Q4H PRN Administration Mild Pain (1-3) Albuterol/Ipratropium 3 ml 11/12/19 19:00 11/24/19 07:05 Duoneb NEB 3 ml [id number] PHILLIP Administration Aspirin 81 mg 11/15/19 09:00 11/24/19 08:10 Ecotrin PO 81 mg DAILY PHILLIP Administration Atorvastatin Calcium 40 mg 11/12/19 21:00 11/23/19 20:47 Lipitor PER TUBE 40 mg HS PHILLIP Administration Carvedilol 25 mg 11/21/19 17:00 11/24/19 08:11 Coreg PO 25 mg BID-WM PHILLIP Administration Clonidine 0.1 mg 11/12/19 11:34 11/20/19 09:14 Catapres PO 0.1 mg Q2H PRN Administration SBP GREATER THAN 160 Hydralazine HCl 50 mg 11/22/19 09:00 11/24/19 08:11 Apresoline PO 50 mg TID PHILLIP Administration Lisinopril 10 mg 11/20/19 21:00 11/24/19 08:10 Zestril PO 10 mg BID PHILLIP Administration Loratadine 10 mg 11/22/19 09:00 11/24/19 08:11 Claritin PO 10 mg DAILY PHILLIP Administration Pantoprazole Sodium 40 mg 11/22/19 09:00 11/24/19 08:11 Protonix PO 40 mg DAILY PHILLIP Administration Risperidone 0.25 mg 11/22/19 09:00 11/24/19 08:11 Risperidone PO 0.25 mg DAILY PHILLIP Administration Sodium Chloride 10 ml 11/19/19 21:00 11/24/19 08:10 Flush - Normal Saline IVF 10 ml Q12HR PHILLIP Administration Spironolactone 25 mg 11/13/19 08:00 11/24/19 08:11 Aldactone PO 25 mg QAM-WM PHILLIP Administration Ticagrelor 90 mg 11/12/19 21:00 11/24/19 08:11 Brilinta PO 90 mg BID PHILLIP Administration - Exam General Appearance: NAD Heart: RRR, no murmur Respiratory: CTAB, no wheezes, no rales, no ronchi Gastrointestinal: soft, non-tender, non-distended, normal bowel sounds Extremities: no cyanosis, no clubbing, no edema Psychiatric: normal affect Hosp A/P (1) STEMI (ST elevation myocardial infarction) Status: Acute Qualifiers: Involved coronary artery: left circumflex coronary artery Qualified Code(s) : I21.21 - ST elevation (STEMI) myocardial infarction involving left circumflex coronary artery (2) Acute anoxic encephalopathy Code(s): G93.1 - ANOXIC BRAIN DAMAGE, NOT ELSEWHERE CLASSIFIED Status: Acute (3) Vision impairment Code(s): H54.7 - UNSPECIFIED VISUAL LOSS Status: Acute (4) Cardiomyopathy Code(s): I42.9 - CARDIOMYOPATHY, UNSPECIFIED Status: Chronic Qualifiers: Cardiomyopathy type: unspecified Qualified Code(s): I42.9 - Cardiomyopathy , unspecified (5) Acute respiratory failure with hypoxia and hypercapnia Code(s): J96.01 - ACUTE RESPIRATORY FAILURE WITH HYPOXIA; J96.02 - ACUTE RESPIRATORY FAILURE WITH HYPERCAPNIA Status: Resolved (6) CAD (coronary artery disease) Code(s): I25.10 - ATHSCL HEART DISEASE OF [place] CORONARY ARTERY W/O ANG PCTRS Status: Chronic (7) Dyslipidemia Code(s): E78.5 - HYPERLIPIDEMIA, UNSPECIFIED Status: Chronic (8) HTN (hypertension) Code(s): I10 - ESSENTIAL (PRIMARY) HYPERTENSION Status: Chronic - Plan Appreciate multiple consultants: - Cardiology - medications optimized, pt is s/p stent placement for STEMI - Neurology - s/p cardiac and resp arrest with encephalopathy. Not a candidate for MRI due to AICD - Ophthalmology evaluation yesterday - normal fundus, no abnormality identified. HTN - well controlled dvt prophy - scd's gi prophy - not indicated code status full awaiting placement for rehabilitation - pt reports today he can go home with nephew/cousins - placed consult to case management to see if this is an option with family. Pt is cleared for discharge when the next location is identified/ approved.
--- NOTE | 2019-11-24 14:26 | PDOC.CPN ---
- Subjective Date: 11/24/19 Time: 14:25 Interval history: No new issues. No new complaints. - Review of Systems General: denies: fever/chills, weight/appetite/sleep changes, night sweats, fatigue Respiratory: denies: cough, congestion, shortness of breath, exercise intolerance Cardiovascular: denies: chest pain, palpitation, edema, paroxysmal nocturnal dyspnea, orthopnea Gastrointestinal: denies: nausea, vomiting, diarrhea, constipation, abd pain, GI bleeding Musculoskeletal: denies: pain, tenderness, stiffness, swelling, arthritis/ arthralgias - Objective Allergies/Adverse Reactions: Allergies Allergy/AdvReac Type Severity Reaction Status Date / Time No Known Allergies Allergy Verified 08/18/19 07:42 Visit Medications: Current Medications Albuterol/Ipratropium (Duoneb) 3 ml NEB [id number] [facility] Last Admin: 11/24/19 13:30 Dose: 3 ml Aspirin (Ecotrin) 81 mg PO DAILY [facility] Last Admin: 11/24/19 08:10 Dose: 81 mg Atorvastatin Calcium (Lipitor) 40 mg PER TUBE HS [facility] Last Admin: 11/23/19 20:47 Dose: 40 mg Carvedilol (Coreg) 25 mg PO BID-WM [facility] Last Admin: 11/24/19 08:11 Dose: 25 mg Clonidine (Catapres) 0.1 mg PO Q2H PRN PRN Reason: SBP GREATER THAN 160 Last Admin: 11/20/19 09:14 Dose: 0.1 mg Hydralazine HCl (Apresoline) 50 mg PO TID [facility] Last Admin: 11/24/19 08:11 Dose: 50 mg Lisinopril (Zestril) 10 mg PO BID [facility] Last Admin: 11/24/19 08:10 Dose: 10 mg Loratadine (Claritin) 10 mg PO DAILY [facility] Last Admin: 11/24/19 08:11 Dose: 10 mg Magnesium Hydroxide (Milk Of Magnesium) 30 ml PO Q12H PRN PRN Reason: Constipation Nitroglycerin (Nitrostat) 0.4 mg SL Q5MIN PRN PRN Reason: Chest Pain Pantoprazole Sodium (Protonix) 40 mg PO DAILY [facility] Last Admin: 11/24/19 08:11 Dose: 40 mg Risperidone (Risperidone) 0.25 mg PO DAILY [facility] Last Admin: 11/24/19 08:11 Dose: 0.25 mg Sodium Chloride (Flush - Normal Saline) 10 ml IVF Q12HR [facility] Last Admin: 11/24/19 08:10 Dose: 10 ml Sodium Chloride (Flush - Normal Saline) 10 ml IVF PRN PRN PRN Reason: Saline Flush Spironolactone (Aldactone) 25 mg PO QAM-WM [facility] Last Admin: 11/24/19 08:11 Dose: 25 mg Ticagrelor (Brilinta) 90 mg PO BID [facility] Last Admin: 11/24/19 08:11 Dose: 90 mg Vital Signs & Weight: Vital Signs Temp Pulse Resp BP BP BP Pulse Ox 11/24/19 13:30 69 16 11/24/19 11:05 98.9 F 62 18 135/69 98 11/24/19 10:20 126/69 149/75 H 11/24/19 07:05 98.2 F 67 18 142/86 H 97 11/24/19 03:19 98.0 F 62 20 136/78 97 Admit Weight 263 lb 7.238 oz Weight 243 lb 11.2 oz - Physical Exam General: no apparent distress HEENT: mucus membranes moist Neck: supple neck Cardiac: regular rate and rhythm Lungs: clear to auscultation Neuro: no lateralizing findings Abdomen: active bowel sounds Extremities: no edema Skin: clear Musculoskeletal: no pain - Labs Result Diagrams: 11/24/19 04:00 11/24/19 04:00 Troponin/CKMB CK-MB (CK-2) 3.9 ng/mL (0-6.6) 11/12/19 08:54 Troponin I 75.953 ng/mL (< 0.028) H* 11/12/19 18:17 - Telemetry Sinus rhythms and dysrhythmias: sinus rhythm - Assessment/Plan Assessment/Plan: 1. Acute inferior STEMI 2. S/P stenting to distal LCx. 3. S/P Cardiac arrest. 4. Hx of non ischemic CM 5. AICD in place 6. JERMAIN on CKD, improved. 7. Severe LV dysfunction EF at 20-25% PLAN: - CV stable. - Placement. - Continue current meds.
[2019-11-24] MEDS: Atorvastatin Calcium 40 MG TAB PER TUBE SCH (20:17)
[2019-11-25 04:48] LABS: Anion Gap 10 mmol/L (10-20); BUN (Urea Nitrogen) 14 mg/dL (8.9-20.6); Calc. Creatinine Clearance 139 mL/min (70-130); Calcium 8.9 mg/dL (7.8-10.44); Carbon Dioxide 25 mmol/L (22-29); Chloride 111 mmol/L (98-107); Estimated GFR-MDRD Greater than 90; Glucose 103 mg/dL (70-105); Potassium 3.8 mmol/L (3.5-5.1); Sodium 142 mmol/L (136-145)
[2019-11-25] MEDS: TICAGRELOR 90 MG TABLET PO SCH (08:23)
[2019-11-25] MEDS: Aspirin 81 mg Enteric Coated Tablet PO SCH (08:23)
[2019-11-25] MEDS: Carvedilol 6.25 MG TAB PO SCH (08:24)
[2019-11-25] MEDS: hydrALAZINE 25 MG TAB PO SCH ×2 (08:24→15:12)
[2019-11-25] MEDS: risperiDONE 0.25 MG TAB PO SCH (08:24)
[2019-11-25] MEDS: Spironolactone 25 MG TAB PO SCH (08:25)
[2019-11-25] MEDS: Lisinopril 10 MG TAB PO SCH (08:25)
[2019-11-25] MEDS: Loratadine 10 MG TAB PO SCH (08:27)
[2019-11-25 15:33] VITALS: TEMP 98.7
--- NOTE | 2019-11-25 17:25 | DIS ---
DATE OF ADMISSION: 11/12/2019 DATE OF DISCHARGE: 11/25/2019 CONSULTANTS: 1. Pulmonology. 2. Cardiology, Dr. Loco, Dr. Meehan, Dr. Knowles, and Dr. Adkins. 3. Neurology - Dr. Ogden DISCHARGE MEDICATIONS: Medications are reconciled at discharge. New medications: 1. Aspirin 81 mg daily. 2. Lisinopril 10 mg b.i.d. 3. Pantoprazole 40 mg daily. 4. Brilinta 90 mg b.i.d. 5. Hydralazine 50 mg t.i.d. 6. Lasix 20 mg once daily. All prescriptions provided for 30 days, no refills with the exception of Brilinta one refill. All further refills need to come from Cardiology or the primary care provider Medications to resume; 1. Atorvastatin 40 mg daily. 2. Carvedilol 25 mg b.i.d. with meals. 3. Nitroglycerin 0.4 mg sublingual every 5 minutes as needed. 4. Spironolactone 25 mg daily. Medications discontinued are furosemide as it is not currently needed. FINAL DIAGNOSES: 1. Inferior wall ST elevation myocardial infarction, status post stent placement in the left circumflex. 2. Anoxic injury secondary to respiratory and cardiac arrest prior to presentation at the hospital. 3. Visual impairment secondary to above. 4. Acute respiratory failure secondary to cardiac arrest, resolved. 5. Acute kidney injury with known chronic kidney disease. SECONDARY DIAGNOSES: 1. Hypertension. 2. Dyslipidemia. 3. Cardiomyopathy. 4. Automatic implantable cardioverter-defibrillator in place for severe left ventricular dysfunction with an ejection fraction of 20% to 25%. HISTORY OF PRESENT ILLNESS: Mr. Adhikari is a 44-year-old man with a history of nonischemic cardiomyopathy and AICD, who presented to the emergency room due to cardiac arrest. In review of the history and physical, he underwent 4 minutes of CPR, was given epinephrine, and had return of spontaneous circulation. In the emergency room, he was stabilized with dopamine and taken to the cardiac laborer syrup machine, where he was found to have an acute inferior WI and underwent stent placement in the left circumflex. HOSPITAL COURSE: The patient has been treated for the following; 1. Acute STEMI. His medications have been adjusted, he has been monitored on telemetry, his blood pressure is controlled. He is on dual antiplatelet therapy for the left circumflex stent. He has been tolerating cardiac rehab and will need to continue this in the outpatient setting. He does have times of PVCs, brief episodes of nonsustained ventricular tachycardia for which he is asymptomatic. He is on beta-kush and multiple other medications. 2. Encephalopathy secondary to cardiac arrest. The patient does have change in his vision. He was evaluated by Dr. Mayo of Ophthalmology and had a normal fundus exam. Unfortunately, MRI cannot be obtained due to pt's AICD. Follow up recommended with a Neurologist in the outpatient setting. 3. The patient has been working with therapy services while here and will benefit from this as an outpatient. He needs a Primary Care Provider to collaborate with the Physical therapist/cardiac rehab therapist. PHYSICAL EXAM ON DAY OF DISCHARGE: VITAL SIGNS: On day of discharge, blood pressure 135/89, pulse 63, respirations 16, oxygen saturation 99% on room air, and temperature 98.9. GENERAL: Awake, alert, responsive, in no apparent distress. Able to speak in full sentences. LUNGS: Clear to auscultation bilateral. HEART: Normal S1 and S2. Regular rate and rhythm. No significant murmur. ABDOMEH: Soft with present bowel sounds. Nontender, nondistended. EXTREMITIES: No edema. ADDENDUM: SCHMIDT FINDINGS AND TEST RESULTS: CBC: 9.6, 12.6, 35.7, 314 on November 23. Renal panel today 142, 3.8, 111, 25, 14, 1.05 and 103. Peak creatinine was 2.26 on November 16. Troponin 75.9 on November 11. Liver function test on November 12, total protein 6.8, albumin 3.8, triglycerides 170, cholesterol 163, LDL 97, HDL 32. TSH 2.50. BNP on admission 674. Liver function test, AST 222, ALT 53, alkaline phosphatase 69 on November 12. Urinalysis on November 11, present protein, 11-20 red blood cells, 7-10 white blood cells. Urine drug screen negative. COVID, nondetected. Echocardiogram performed on November 12 shows an EF of 20% to 25%, grade 1/3 diastolic dysfunction, moderate concentric LVH, mild MR and TR. Brain CT on November 19 shows no acute intracranial abnormality. Chest x-ray on November 14 shows similar exam. The patient was intubated at that time. Chest x-ray on November 13 at 9 a.m., no significant change. Chest x-ray on November 12 stable multifocal infiltrates. November 11, chest x-ray, the tip of the endotracheal tube below the clavicular head, NG tube present with the distal tip not satisfactorily visualized, heart is enlarged, diffuse bilateral lung opacities noted. DIET: Heart healthy. Fluid restriction to 2 L per day. ACTIVITY: As tolerated, encourage physical therapy and cardiac rehab. FOLLOWUP: 1. With cardiac rehab, information provided to the patient. 2. [facility] in [place] on November 25 at [address] Meehan within [address] Rosario of Neurology to follow the anoxic brain injury. DISCHARGE DISPOSITION: Home. CODE STATUS: Full. Reviewed the plan of care with the patient prior to discharge including the return for care precautions and the importance of followup. He demonstrates understanding. TOTAL TIME: Total time coordinating discharge is 45 minutes. Job ID: [id number]
[2019-11-25 18:07] VITALS: BP 129/74
== END 2019-11-25 16:05 | disposition home or self-care (01) | DRG 246 ==
LOC: ERS 08:42 → CCL 09:41 → CCU 09:41 → 2NO 11-18 15:33
PROVIDERS: ADMIT Internal Medicine Cardiovascular Disease; ATTEND Internal Medicine Cardiovascular Disease
PROC: 027034Z Dilation of Coronary Artery, One Artery with Drug-eluting Intraluminal Device, Percutaneous Approach (ICD-10-PCS; principal; 2019-11-12)
PROC: 3E03317 Introduction of Other Thrombolytic into Peripheral Vein, Percutaneous Approach (ICD-10-PCS; 2019-11-12)
PROC: 4A023N7 Measurement of Cardiac Sampling and Pressure, Left Heart, Percutaneous Approach (ICD-10-PCS; 2019-11-12)
PROC: B2111ZZ Fluoroscopy of Multiple Coronary Arteries using Low Osmolar Contrast (ICD-10-PCS; 2019-11-12)
PROC: 3E033XZ Introduction of Vasopressor into Peripheral Vein, Percutaneous Approach (ICD-10-PCS; 2019-11-12)
PROC: 5A1955Z Respiratory Ventilation, Greater than 96 Consecutive Hours (ICD-10-PCS; 2019-11-12)
DX: I21.19 ST elevation (STEMI) myocardial infarction involving other coronary artery of inferior wall (principal); Z20.828 Contact with and (suspected) exposure to other viral communicable diseases; R57.0 Cardiogenic shock; J96.01 Acute respiratory failure with hypoxia; J96.02 Acute respiratory failure with hypercapnia; G93.1 Anoxic brain damage, not elsewhere classified; N17.9 Acute kidney failure, unspecified; I42.8 Other cardiomyopathies; I50.22 Chronic systolic (congestive) heart failure; E87.0 Hyperosmolality and hypernatremia; F05 Delirium due to known physiological condition; I67.82 Cerebral ischemia; I13.0 Hypertensive heart and chronic kidney disease with heart failure and stage 1 through stage 4 chronic kidney disease, or unspecified chronic kidney disease; H54.7 Unspecified visual loss; D63.1 Anemia in chronic kidney disease; E78.5 Hyperlipidemia, unspecified; I25.10 Atherosclerotic heart disease of native coronary artery without angina pectoris; E66.01 Morbid (severe) obesity due to excess calories; I73.9 Peripheral vascular disease, unspecified; E87.6 Hypokalemia; N18.9 Chronic kidney disease, unspecified; Z79.899 Other long term (current) drug therapy; Z95.828 Presence of other vascular implants and grafts; Z79.82 Long term (current) use of aspirin; Z95.810 Presence of automatic (implantable) cardiac defibrillator; Z78.1 Physical restraint status; Z87.891 Personal history of nicotine dependence; Z95.5 Presence of coronary angioplasty implant and graft; Z68.33 Body mass index [BMI] 33.0-33.9, adult
CPT/HCPCS: 36415; 51702; 70450; 71045; 80048; 80053; 80061; 80306; 81003; 81015; 82550; 82553; 82607; 82746; 82805; 83880; 84443; 84484; 85025; 85027; 85347; 85610; 85730; 87635; 92928; 93005; 93010; 93306; 93454; 94002; 94003; 94640; 96374; 96375; 99152; C1874; C9113; C9600; J0696; J1265; J1644; J1940; J2060; J2250; J2704; J2765; J3010; J3246; J3480; J3490; J7620; Q9967; U0003

== ENCOUNTER 2022-06-04 15:19 | Observation (INO) | payer OTHER ==
[2022-06-04 16:15] LABS: #Eosinphils 0.2 thou/uL (0.0-0.7); #Monocytes 0.4 thou/uL (0.11-0.59); %Basophils 0.6 % (0.0-1.0); %Lymphocytes 39.4 % (21.0-51.0); %Monocytes 5.6 % (0.0-10.0); %Neutrophils 52.5 % (42.0-75.0); Hemoglobin 14.8 g/dL (14.0-18.0); Mean Corpuscular HGB CONC 34.7 g/dL (32.0-36.0); Mean Corpuscular Hemoglobin 29.3 pg (27.0-31.0); Mean Corpuscular Volume 84.3 fl (78.0-98.0); Platelet Count 185 10x3/uL (130-400); RBC Distribution Width 13.9 % (11.5-14.5); Red Blood Cell (RBC) Count 5.04 mill/uL (4.70-6.10); White Blood Cell (WBC) Count 7.7 10x3/uL (4.8-10.8)
[2022-06-04] MEDS ORDERED: Aspirin Chewable 81 MG TAB ONE (16:15)
[2022-06-04 16:36] LABS: ALT (SGPT) 34 U/L (8-55); AST (SGOT) 35 U/L (5-34); Albumin 3.9 g/dL (3.5-5.0); Alkaline Phosphatase 99 U/L (40-110); Anion Gap 10 mmol/L (10-20); BUN (Urea Nitrogen) 8 mg/dL (8.9-20.6); Bilirubin, Total 0.5 mg/dL (0.2-1.2); Calc. Creatinine Clearance 0 mL/min (70-130); Calcium 8.8 mg/dL (7.8-10.44); Carbon Dioxide 25 mmol/L (22-29); Chloride 110 mmol/L (98-107); Estimated GFR 79; Globulin 2.4 g/dL (2.4-3.5); Glucose 91 mg/dL (70-105); Potassium 3.9 mmol/L (3.5-5.1); Protein, Total 6.3 g/dL (6.0-8.3); Sodium 141 mmol/L (136-145)
[2022-06-04 17:17] LABS: CKMB 3.8 ng/mL (0-6.6)
[2022-06-04] MEDS ORDERED: hydrALAZINE 20 MG/ML VIAL ONE (20:15)
[2022-06-04] MEDS ORDERED: Nitroglycerin 0.4 MG TAB (25 Tab Bottle) SL PRN (20:55)
[2022-06-04] MEDS ORDERED: Ondansetron PF 4 MG/2 ML Vial IVP PRN (21:35)
[2022-06-04] MEDS ORDERED: Acetaminophen 325 MG TAB PO PRN (21:35)
[2022-06-04] MEDS ORDERED: Ondansetron ODT 4 MG TAB PO PRN (21:35)
[2022-06-04] MEDS ORDERED: Furosemide 40 MG/4 ML VIAL SLOW IVP SCH (22:00)
[2022-06-04 23:34] VITALS: BMI 42.8
[2022-06-04] MEDS: hydrALAZINE 25 MG TAB PO SCH (23:54)
[2022-06-04 23:57] LABS: Troponin I 0.076 ng/mL (< 0.028)
[2022-06-05 05:53] LABS: Cardiac Risk 4.3 (Less than 4.5)
[2022-06-05] MEDS: Furosemide 40 MG/4 ML VIAL SLOW IVP SCH ×2 (06:11→14:30)
[2022-06-05] MEDS ORDERED: Ipratropium/Albuterol 3 ML NEB NEB PRN (09:31)
[2022-06-05] MEDS: Carvedilol 25 MG TAB PO SCH ×2 (09:40→18:05)
[2022-06-05] MEDS: hydrALAZINE 25 MG TAB PO SCH ×3 (09:41→20:16)
[2022-06-05] MEDS: Spironolactone 25 MG TAB PO SCH (09:41)
[2022-06-05] MEDS: Clopidogrel Bisulfate 75 MG TAB PO SCH (09:41)
[2022-06-05] MEDS: Losartan 25 MG TAB PO SCH (09:42)
[2022-06-05] MEDS: Ipratropium/Albuterol 3 ML NEB NEB SCH ×4 (10:58→22:32)
[2022-06-05] MEDS ORDERED: Atorvastatin Calcium 40 MG TAB PO SCH (21:00)
[2022-06-06 02:37] LABS: Anion Gap 12 mmol/L (10-20); BUN (Urea Nitrogen) 17 mg/dL (8.9-20.6); Calc. Creatinine Clearance 150 mL/min (70-130); Calcium 9.5 mg/dL (7.8-10.44); Carbon Dioxide 26 mmol/L (22-29); Chloride 105 mmol/L (98-107); Estimated GFR 75; Glucose 100 mg/dL (70-105); Magnesium 2.1 mg/dL (1.6-2.6); Potassium 3.5 mmol/L (3.5-5.1); Sodium 139 mmol/L (136-145)
[2022-06-06] MEDS: Ipratropium/Albuterol 3 ML NEB NEB SCH ×4 (02:37→13:35)
[2022-06-06] MEDS: Furosemide 40 MG/4 ML VIAL SLOW IVP SCH (05:49)
[2022-06-06] MEDS: Losartan 25 MG TAB PO SCH (09:53)
[2022-06-06] MEDS: Carvedilol 25 MG TAB PO SCH (09:53)
[2022-06-06] MEDS: Spironolactone 25 MG TAB PO SCH (09:54)
[2022-06-06] MEDS: Clopidogrel Bisulfate 75 MG TAB PO SCH (09:54)
[2022-06-06] MEDS: hydrALAZINE 25 MG TAB PO SCH (09:54)
[2022-06-06 12:32] VITALS: BP 123/84; TEMP 98.7
[2022-06-07] MEDS ORDERED: Aspirin Chewable 81 MG TAB PO SCH (09:00)
== END 2022-06-06 14:15 | disposition home or self-care (01) ==
LOC: ERS 15:19 → ERHOLD 21:39 → 2SW 23:20
PROVIDERS: ADMIT Student in an Organized Health Care Education/Training Program; ATTEND Internal Medicine
DX: I13.0 Hypertensive heart and chronic kidney disease with heart failure and stage 1 through stage 4 chronic kidney disease, or unspecified chronic kidney disease (principal); E11.22 Type 2 diabetes mellitus with diabetic chronic kidney disease; N18.2 Chronic kidney disease, stage 2 (mild); I50.43 Acute on chronic combined systolic (congestive) and diastolic (congestive) heart failure; I42.8 Other cardiomyopathies; I25.10 Atherosclerotic heart disease of native coronary artery without angina pectoris; E78.5 Hyperlipidemia, unspecified; H54.8 Legal blindness, as defined in USA; I25.2 Old myocardial infarction; F12.10 Cannabis abuse, uncomplicated; R77.8 Other specified abnormalities of plasma proteins; Z51.5 Encounter for palliative care; Z87.891 Personal history of nicotine dependence; Z79.02 Long term (current) use of antithrombotics/antiplatelets; Z79.899 Other long term (current) drug therapy; Z95.5 Presence of coronary angioplasty implant and graft; Z95.810 Presence of automatic (implantable) cardiac defibrillator; Z20.822 Contact with and (suspected) exposure to COVID-19
CPT/HCPCS: 36415; 71045; 80048; 80053; 80061; 82553; 83735; 83880; 84484; 85025; 93005; 93798; 94640; 94760; 96372; 96374; 96376; G0378; J0360; J1650; J1940; J7620; U0003; U0005